=== PATIENT | female | born 1975 | race Caucasian/White ===

== ENCOUNTER 2017-03-06 00:50 | Inpatient (IN) | payer MEDICAID, OTHER ==
[2017-03-06 00:50] VITALS: BMI 36.5
[2017-03-06 01:49] LABS: BASO % 0.4 % (0.0-2.0); EOS # 0.1 K/uL (0.0-0.7); HEMATOCRIT 37.3 % (34.0-47.0); LYMPH # 3.6 K/uL (1.0-4.3); MEAN CELL VOLUME 84.8 fL (81.0-99.0); MEAN CORPUSCULAR HEMOGLOBIN 27.8 pg (27.0-31.0); MEAN CORPUSCULAR HGB CONC 32.7 g/dL (33.0-37.0); MEAN PLATELET VOLUME 7.3 fL (7.2-11.7); MONO # 0.6 K/uL (0.0-0.8); RED CELL DISTRIBUTION WIDTH 15.6 % (11.5-14.5); WHITE BLOOD COUNT 7.5 K/uL (4.8-10.8)
[2017-03-06 01:54] LABS: URINE BILIRUBIN NEGATIVE (NEGATIVE); URINE BLOOD NEGATIVE (NEGATIVE); URINE COLOR Colorless (YELLOW); URINE GLUCOSE (UA) NORMAL (Normal); URINE KETONE NEGATIVE (NEGATIVE); URINE LEUKOCYTE ESTERASE NEG Leu/uL (Negative); URINE PROTEIN NEGATIVE (NEGATIVE); URINE UROBILINOGEN NORMAL mg/dL (0.2-1.0)
[2017-03-06 01:59] LABS: CHLORIDE 110 mmol/L (98-107)
[2017-03-06 02:00] LABS: POTASSIUM 4.1 mmol/L (3.6-5.2); SODIUM 146 mmol/L (132-148)
[2017-03-06 02:02] LABS: CARBON DIOXIDE 19 mmol/L (22-30); GFR AFRICAN-AMERICAN > 60
[2017-03-06 02:03] LABS: ALB/GLOB RATIO 1.2 (1.0-2.1); ALKALINE PHOSPHATASE 68 U/L (38-126); ALT/SGPT 32 U/L (9-52); AST/SGOT 31 U/L (14-36); BILIRUBIN,TOTAL 0.2 mg/dL (0.2-1.3); BLOOD UREA NITROGEN 10 mg/dL (7-17); CALCIUM 9.2 mg/dl (8.6-10.4); GLUCOSE,RANDOM 101 mg/dL (65-105)
--- NOTE | 2017-03-06 03:19 | C.PDOC ---
History Of Present Illness <Ginger Angulo - Last Filed: 03/06/17 10:16> <NilaTrang A - Last Filed: 03/14/17 20:03> 41 year old female brought via EMS after she expressed over the phone to a friend that she wanted to hang herself. EMS was called, and they found her with a rope and scissors in hand at her apartment. Patient admits to suicidal ideation, with suicidal plan to hang herself. She states she has been under a lot of stress, recently found out her has had HIV for the past 20 years and did not tell her. Admits to ETOH use today. She has no current physical complaints. (Trang Dotson) <Ginger Angulo - Last Filed: 03/06/17 10:16> History Per: Patient History/Exam Limitations: no limitations Current Symptoms Are (Timing): Still Present Suicide/Self Injury Attempted (Context): None Modifying Factor(s): Alcohol Associated Symptoms: Depression, Suicidal Thoughts, Suicidal Plan (To hang herself) <Trang Dotson - Last Filed: 03/14/17 20:03> Time Seen by Provider: 03/06/17 00:56 Chief Complaint (Nursing): Psychiatric Evaluation Past Medical History Reviewed: Historical Data, Nursing Documentation, Vital Signs - Medical History PMH: Anxiety, Asthma, Bipolar Disorder, COPD, Depression, Fractures, HTN, Schizophrenia, Seizures Surgical History: (x 4) Family History: States: No Known Family Hx - Social History Hx Tobacco Use: No Hx Alcohol Use: Yes Hx Substance Use: Yes - Immunization History Hx Tetanus Toxoid Vaccination: No Hx Influenza Vaccination: No Hx Pneumococcal Vaccination: No <Trang Dotson - Last Filed: 03/14/17 20:03> Vital Signs: Last Vital Signs Temp 97.0 F L 03/10/17 07:43 Pulse 78 03/10/17 07:43 Resp 16 03/10/17 07:43 BP 127/75 03/10/17 07:43 Pulse Ox 98 03/06/17 14:41 - [facility] Procedures APPLICATION OF SPLINT (06/12/13) DETOXIFICATION SERVICES FOR SUBSTANCE ABUSE TREATMENT (03/06/17) GROUP UNDERWATER TRAPPER FOR SUBSTANCE ABUSE TREATMENT, PSYCHOEDUCATION (03/06/17) GROUP UNDERWATER TRAPPER FOR SUBSTANCE ABUSE, COGNITIVE BEHAVIORAL (03/06/17) GROUP PSYCHOTHERAPY (05/23/16) INDIV UNDERWATER TRAPPER FOR SUBSTANCE ABUSE TREATMENT, PSYCHOEDUCATION (03/06/17) INDIV UNDERWATER TRAPPER FOR SUBSTANCE ABUSE, COGNITIVE BEHAVIORAL (03/06/17) INDIV PSYCHOTHERAPY FOR SUBSTANCE ABUSE TREATMENT, SUPPORT (03/06/17) INDIVID PSYCHOTHERAP NEC (05/23/14) INDIVIDUAL PSYCHOTHERAPY, SUPPORTIVE (11/05/16) INJECT/INFUSE NEC (05/14/14) MEDICATION MANAGEMENT (05/23/16) OTHER GROUP THERAPY (05/23/14) VACCINATION NEC (04/07/15) Review Of Systems Except As Marked, All Systems Reviewed And Found Negative. Constitutional: Negative for: Fever, Chills Cardiovascular: Negative for: Chest Pain, Palpitations Respiratory: Negative for: Shortness of Breath Gastrointestinal: Negative for: Nausea, Vomiting, Abdominal Pain, Diarrhea Psych: Positive for: Depression, Suicidal ideation <Trang Dotson - Last Filed: 03/14/17 20:03> Physical Exam - Physical Exam Appears: Non-toxic, Other (Flat affect) Skin: Normal Color, Warm, Dry Head: Atraumatic, Normacephalic Eye(s): bilateral: Normal Inspection Oral Mucosa: Moist Cardiovascular: Rhythm Regular Respiratory: Normal Breath Sounds, No Rales, No Rhonchi, No Wheezing Gastrointestinal/Abdominal: Normal Exam, Bowel Sounds, Soft, No Tenderness Neurological/Psych: Oriented x3 <Trang Dotson - Last Filed: 03/14/17 20:03> ED Course And Treatment - Laboratory Results Result Diagrams: 03/06/17 01:45 03/06/17 01:45 <Ginger Angulo - Last Filed: 03/06/17 10:16> - Laboratory Results Result Diagrams: 03/06/17 01:45 03/06/17 01:45 O2 Sat by Pulse Oximetry: 99 (Room air) Pulse Ox Interpretation: Normal Progress Note: Blood work, UA, UDS ordered and reviewed. Patient given her dose of PO Seroquel (ran out of med several days ago). Patient placed in ED observation due to elevated alcohol level. Pending crisis evaluation. Reevaluation Time: 06:00 Reassessment Condition: Improved (Patient sleeping comfortably, arousable to verbal stimuli. Pending sobriety, crisis eval.) <Trang Dotson - Last Filed: 03/14/17 20:03> Disposition Counseled Patient/Family Regarding: Diagnosis - Disposition Disposition Time: 10:16 - POA Present On Arrival: None <KevGinger - Last Filed: 03/06/17 10:16> - Disposition Disposition Time: 07:00 <Trang Dotson - Last Filed: 03/14/17 20:03> - Disposition Disposition: HOSPITALIZED Condition: STABLE - Clinical Impression Clinical Impression: Suicidal ideation, Alcohol use <Ginger Angulo - Last Filed: 03/06/17 10:16> - Scribe Statement The provider has reviewed the documentation as recorded by the Scribe <Trang Dotson - Last Filed: 03/14/17 20:03> - Scribe Statement Luis F Hou All medical record entries made by the Scribe were at my direction and personally dictated by me. I have reviewed the chart and agree that the record accurately reflects my personal performance of the history, physical exam, medical decision making, and the department course for this patient. I have also personally directed, reviewed, and agree with the discharge instructions and disposition. (Trang Dotson) Physician Patient Turnover Patient Signed Over To: Ginger Angulo Handoff Comments: pending sobriety, crisis eval <Trang Dotson - Last Filed: 03/14/17 20:03> Decision To Admit - Pt Status Changed To: Hospital Disposition Of: Inpatient - Admit Certification Admit to Inpatient:: After my assessment, the patient will require hospitalization for at least two midnights. This is because of the severity of symptoms shown, intensity of services needed, and/or the medical risk in this patient being treated as an outpatient. - InPatient: Physician Admission Certification: I certify that this patient requires 2 or more midnights of care for the following reason:: SEE NOTE - . Bed Request Type: Psychiatry Admitting Physician: Teresa Donahue <Ginger Angulo - Last Filed: 03/06/17 10:16> <Trang Dotson - Last Filed: 03/14/17 20:03> - . Patient Diagnosis: Suicidal ideation, Alcohol use, Bipolar 1 disorder, depressed, severe
[2017-03-06 10:04] LABS: RBC URINE < 1 /hpf (0-3); WBC URINE < 1 /hpf (0-5)
[2017-03-06] MEDS ORDERED: Influenza Virus Vaccine 45 mcg/0.5 ml Syr IM ONE (16:59)
[2017-03-06] MEDS ORDERED: Albuterol HFA 90 mcg/actuation (8 g) INH PRN (17:20)
[2017-03-06] MEDS ORDERED: Naproxen 550 mg Tab PO PRN (17:20)
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
--- NOTE | 2017-03-08 10:22 | PCM.PYCHPN ---
Psychiatric Progress Note - Psychiatric Progress Note Patient seen today, length of contact: 16 min Patient Chief Complaint: I'm feeling little better Problems Identified/Issues Discussed: Patient seen and evaluated, chart reviewed and discussed with the nurse. Patient reports irritability and agitation. She still reports racing of thoughts and anxiety. She remained isolated and withdrawn and denies any withdrawal symptoms. However she remained calm and cooperative, taking medication and denies any side effects. Supportive therapy and psychoeducation were given Medication Change: Yes (decrease Cymbalta, increase seroquel) Medical Record Reviewed: Yes Mental Status Examination - Cognitive Function Orientation: Person, Place, Situation, Time Memory: Intact Attention: WNL Concentration: Poor Association: WNL Fund of Knowledge: Poor - Mood Mood: Depressed, Anxious - Affect Affect: Broad, Depressed - Speech Speech: Soft - Formal Thought Process Formal Thought Process: Flight of ideas - Suicidal Ideation Suicidal Ideation: No - Homicidal Ideation Homicidal Ideation: No Goal/Treatment Plan - Goal/Treatment Plan Need for Continued Stay: Discharge may exacerbated symptoms, Severe functional impairment Progress Toward Problem(s) and Goals/Treatment Plan: Bipolar disorder current episode mixed severe without psychotic features CBT Psychoeducation Supportive therapy, group therapy, individual therapy Cymbalta 30 mg by mouth daily Neurontin 300 mg by mouth 3 times a day Seroquel 200 mg by mouth daily Seroquel 300 mg by mouth daily at bedtime Trazodone 50 mg by mouth daily at bedtime Alcohol use disorder severe CBT Psychoeducation Supportive therapy, individual therapy Use PR for abstinence Alcohol withdrawal uncomplicated CBT Psychoeducation Supportive therapy, individual therapy Librium when necessary Folic acid/thiamine/multivitamin Asthma Continue prescribed medications (Montelukast, albuteral inhaler) Monitor signs and symptoms - Smoking Cessation Smoking Cessation Initiated: No
[2017-03-09] MEDS: Pantoprazole 40 mg EC Tab PO SCH (09:41)
[2017-03-09 09:56] VITALS: RESP 16
[2017-03-09] MEDS ORDERED: Pneumococcal 23-Valent Vaccine IM ONE (10:00)
--- NOTE | 2017-03-09 13:16 | PCM.PYCHPN ---
Psychiatric Progress Note - Psychiatric Progress Note Patient seen today, length of contact: 15 min Patient Chief Complaint: "I'm OK" Problems Identified/Issues Discussed: The pt is seen, chart reviewed, case discussed with staff. The pt is compliant with medications and reports no side-effects. Symptoms are improving but needs more time to stabilize. After care discussed, support and psychoeducation given. How to stop frequent admissions discussed. She agreed to consider IOP, ie [facility] Medication Change: No Medical Record Reviewed: Yes Mental Status Examination - Cognitive Function Orientation: Person, Place, Situation, Time Memory: Intact Attention: WNL Concentration: Poor Association: WNL Fund of Knowledge: Poor - Mood Mood: Depressed, Anxious - Affect Affect: Broad - Speech Speech: Soft - Formal Thought Process Formal Thought Process: No Impairment - Suicidal Ideation Suicidal Ideation: No - Homicidal Ideation Homicidal Ideation: No Goal/Treatment Plan - Goal/Treatment Plan Need for Continued Stay: Discharge may exacerbated symptoms, Severe functional impairment Progress Toward Problem(s) and Goals/Treatment Plan: Continue medications Support and psychoeducation daily Attend groups and activities daily After care planning Estimated Date of D/C: 03/11/17
[2017-03-09] MEDS ORDERED: Aluminum Hydroxide/Magnesium Hydroxide Susp (30 mL) PO PRN (21:29)
[2017-03-10 07:43] VITALS: BP 127/75; PULSE 78; TEMP 97
[2017-03-10] MEDS: Pantoprazole 40 mg EC Tab PO SCH (09:17)
--- NOTE | 2017-03-10 16:33 | PCM.PYCHPN ---
Psychiatric Progress Note - Psychiatric Progress Note Patient seen today, length of contact: 16 min Patient Chief Complaint: "I'm anxious" Problems Identified/Issues Discussed: The pt is seen, chart reviewed, case discussed with staff. The pt has no SEs from meds Symptoms are improving but needs more time to stabilize. After care discussed and she agreed to consider [facility] IOP. Also, ReVia started and risks discussed. UDS negative Medication Change: Yes (naltrexone) Medical Record Reviewed: Yes Mental Status Examination - Cognitive Function Orientation: Person, Place, Situation, Time Memory: Intact Attention: WNL Concentration: Poor Association: WNL Fund of Knowledge: Poor - Mood Mood: Depressed, Anxious - Affect Affect: Broad - Speech Speech: Soft - Formal Thought Process Formal Thought Process: No Impairment - Suicidal Ideation Suicidal Ideation: No - Homicidal Ideation Homicidal Ideation: No Goal/Treatment Plan - Goal/Treatment Plan Need for Continued Stay: Discharge may exacerbated symptoms, Severe functional impairment Progress Toward Problem(s) and Goals/Treatment Plan: Continue medications, naltrexone added Support and psychoeducation daily Attend groups and activities daily After care planning: IOP Estimated Date of D/C: 03/12/17 If changed, why: needs more time - Smoking Cessation Smoking Cessation Initiated: Yes
[2017-03-11] MEDS: Pantoprazole 40 mg EC Tab PO SCH (09:28)
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
[2017-03-14 20:04] VITALS: O2SAT 99
== END 2017-03-11 11:05 | disposition home or self-care (01) | DRG 430 ==
LOC: C.ER 00:50 → SUPCPDRO 00:50 → C.9OBSV 02:28 → OBSVTOIN 10:18 → C.9E 10:18 → C.5E 14:41
PROVIDERS: ADMIT Emergency Medicine; ATTEND Psychiatry & Neurology Psychiatry
PROC: HZ2ZZZZ Detoxification Services for Substance Abuse Treatment (ICD-10-PCS; principal; 2017-03-07)
PROC: HZ32ZZZ Individual Counseling for Substance Abuse Treatment, Cognitive-Behavioral (ICD-10-PCS; 2017-03-07)
PROC: HZ42ZZZ Group Counseling for Substance Abuse Treatment, Cognitive-Behavioral (ICD-10-PCS; 2017-03-07)
PROC: HZ46ZZZ Group Counseling for Substance Abuse Treatment, Psychoeducation (ICD-10-PCS; 2017-03-07)
PROC: HZ36ZZZ Individual Counseling for Substance Abuse Treatment, Psychoeducation (ICD-10-PCS; 2017-03-07)
PROC: HZ59ZZZ Individual Psychotherapy for Substance Abuse Treatment, Supportive (ICD-10-PCS; 2017-03-07)
DX: F31.63 Bipolar disorder, current episode mixed, severe, without psychotic features (principal); I10 Essential (primary) hypertension; F10.230 Alcohol dependence with withdrawal, uncomplicated; J44.9 Chronic obstructive pulmonary disease, unspecified; F20.9 Schizophrenia, unspecified; T14.91 Suicide attempt; F41.9 Anxiety disorder, unspecified; X83.8XXA Intentional self-harm by other specified means, initial encounter; J45.909 Unspecified asthma, uncomplicated; Y90.8 Blood alcohol level of 240 mg/100 ml or more

== ENCOUNTER 2017-06-04 00:38 | Emergency (ER) | payer MEDICAID, OTHER ==
[2017-06-04 00:38] VITALS: BMI 36.5
[2017-06-04 00:48] VITALS: TEMP 98; O2SAT 98
--- NOTE | 2017-06-04 01:05 | C.PDOC ---
History Of Present Illness Pt has been drinking and complains of some dysuria and vaginal discomfort. No f/ c/n/v. Ambulating without difficulty Time Seen by Provider: 06/04/17 01:05 Chief Complaint (Nursing): Abdominal Pain History Per: Patient History/Exam Limitations: no limitations Onset/Duration Of Symptoms: Hrs Current Symptoms Are (Timing): Still Present Context: Other Severity: Mild Pain Scale Rating Of: 2 Location Of Pain/Discomfort: Suprapubic Radiation Of Pain To:: None Quality Of Discomfort: Dull Associated Symptoms: denies: Fever, Chills, Nausea Exacerbating Factors: None Alleviating Factors: None Last Bowel Movement: Yesterday Additional History Per: Patient Abnormal Vaginal Bleeding: No Past Medical History Reviewed: Historical Data, Nursing Documentation, Vital Signs Vital Signs: Last Vital Signs Temp 98.0 F 06/04/17 00:45 Pulse 115 H 06/04/17 00:45 Resp 16 06/04/17 00:45 BP 142/92 H 06/04/17 00:45 Pulse Ox 98 06/04/17 01:05 - Medical History PMH: Anxiety, Asthma, Bipolar Disorder, COPD, Depression, Fractures, HTN, Schizophrenia, Seizures Denies: Diabetes, Hepatitis, HIV, Chronic Kidney Disease, Sexually Transmitted Disease Surgical History: (x 4) - [facility] Procedures APPLICATION OF SPLINT (06/12/13) DETOXIFICATION SERVICES FOR SUBSTANCE ABUSE TREATMENT (03/06/17) GROUP CRIME SCENE EXAMINER FOR SUBSTANCE ABUSE TREATMENT, PSYCHOEDUCATION (03/06/17) GROUP CRIME SCENE EXAMINER FOR SUBSTANCE ABUSE, COGNITIVE BEHAVIORAL (03/06/17) GROUP PSYCHOTHERAPY (05/23/16) INDIV CRIME SCENE EXAMINER FOR SUBSTANCE ABUSE TREATMENT, PSYCHOEDUCATION (03/06/17) INDIV CRIME SCENE EXAMINER FOR SUBSTANCE ABUSE, COGNITIVE BEHAVIORAL (03/06/17) INDIV PSYCHOTHERAPY FOR SUBSTANCE ABUSE TREATMENT, SUPPORT (03/06/17) INDIVID PSYCHOTHERAP NEC (05/23/14) INDIVIDUAL PSYCHOTHERAPY, SUPPORTIVE (11/05/16) INJECT/INFUSE NEC (05/14/14) MEDICATION MANAGEMENT (05/23/16) OTHER GROUP THERAPY (05/23/14) VACCINATION NEC (04/07/15) Family History: States: No Known Family Hx - Social History Hx Tobacco Use: No Hx Alcohol Use: Yes Hx Substance Use: Yes - Immunization History Hx Tetanus Toxoid Vaccination: No Hx Influenza Vaccination: No Hx Pneumococcal Vaccination: No Review Of Systems Constitutional: Negative for: Fever, Chills Eyes: Negative for: Vision Change Cardiovascular: Negative for: Chest Pain, Palpitations Respiratory: Negative for: Shortness of Breath Gastrointestinal: Negative for: Nausea, Vomiting, Abdominal Pain Genitourinary: Positive for: Dysuria, Frequency Musculoskeletal: Negative for: Back Pain Skin: Negative for: Rash, Lesions Neurological: Negative for: Weakness Psych: Negative for: Anxiety Physical Exam - Physical Exam Appears: Non-toxic, No Acute Distress Skin: Warm, Dry Oral Mucosa: Moist Neck: Supple Chest: Symmetrical Cardiovascular: Rhythm Regular Gastrointestinal/Abdominal: Soft, No Tenderness, No Distention, Other (obese) Back: No CVA Tenderness Extremity: Normal ROM Extremity: Bilateral: Atraumatic Neurological/Psych: Oriented x3, Normal Speech, Normal Cognition Gait: Steady ED Course And Treatment O2 Sat by Pulse Oximetry: 98 Pulse Ox Interpretation: Normal Reevaluation Time: 02:26 Reassessment Condition: Improved Disposition Counseled Patient/Family Regarding: Studies Performed, Diagnosis, Need For Followup, Rx Given - Disposition Referrals: [facility] [Outside] Disposition: HOME/ ROUTINE Disposition Time: 01:05 Condition: FAIR Prescriptions: Nitrofurantoin Macrocrystals [Macrobid] 1 cap PO BID #14 cap Instructions: Dysuria (ED) - Clinical Impression Clinical Impression: Dysuria
[2017-06-04 01:35] LABS: HCG,QUALITATIVE URINE NEGATIVE (NEGATIVE)
[2017-06-04 01:43] LABS: BARBITURATES, UR NEGATIVE (NEGATIVE); BENZODIAZEPINES, UR NEGATIVE (NEGATIVE)
[2017-06-04 01:46] LABS: PHENCYCLIDINE, UR NEGATIVE (NEGATIVE)
[2017-06-04 01:47] LABS: OPIATES, UR NEGATIVE (NEGATIVE)
[2017-06-04 02:18] LABS: SQUAMOUS EPITHIAL < 1 /hpf (0-5); URINE BILIRUBIN NEGATIVE (NEGATIVE); URINE BLOOD NEGATIVE (NEGATIVE); URINE CLARITY Clear (Clear); URINE COLOR Colorless (YELLOW); URINE GLUCOSE (UA) NORMAL (Normal); URINE LEUKOCYTE ESTERASE NEG Leu/uL (Negative); URINE NITRATE NEGATIVE (NEGATIVE); URINE PROTEIN NEGATIVE (NEGATIVE); URINE UROBILINOGEN NORMAL mg/dL (0.2-1.0)
[2017-06-04 02:49] VITALS: BP 130/80; PULSE 70; RESP 14
== END 2017-06-04 02:49 | disposition home or self-care (01) ==
LOC: C.ER 00:38
DX: R30.0 Dysuria (principal)

== ENCOUNTER 2017-06-20 22:30 | Emergency (ER) | payer OTHER ==
[2017-06-20 22:30] VITALS: BMI 36.5
--- NOTE | 2017-06-20 23:50 | C.PDOC ---
History Of Present Illness 41 y/o female brought to ED by EMS for disturbance in her building. At ed Patient complaints of feeling anxious and not being able to sleep. Patient denies suicidal ideation, homicidal ideation, fever, chills or any other complaints at this time. Time Seen by Provider: 06/20/17 23:37 Chief Complaint (Nursing): Psychiatric Evaluation History Per: Patient History/Exam Limitations: no limitations Onset/Duration Of Symptoms: Hrs Current Symptoms Are (Timing): Still Present Suicide/Self Injury Attempted (Context): None Past Medical History Reviewed: Historical Data, Nursing Documentation, Vital Signs Vital Signs: Last Vital Signs Temp 98.1 F 06/20/17 22:43 Pulse 132 H 06/20/17 22:43 Resp 20 06/20/17 22:43 BP 133/87 06/20/17 22:43 Pulse Ox 98 06/21/17 00:01 - Medical History PMH: Anxiety, Asthma, Bipolar Disorder, COPD, Depression, Fractures, HTN, Schizophrenia, Seizures Surgical History: (x 4) - [facility] Procedures APPLICATION OF SPLINT (06/12/13) DETOXIFICATION SERVICES FOR SUBSTANCE ABUSE TREATMENT (03/06/17) GROUP HYDROELECTRIC PLANT STRUCTURAL ENGINEER FOR SUBSTANCE ABUSE TREATMENT, PSYCHOEDUCATION (03/06/17) GROUP HYDROELECTRIC PLANT STRUCTURAL ENGINEER FOR SUBSTANCE ABUSE, COGNITIVE BEHAVIORAL (03/06/17) GROUP PSYCHOTHERAPY (05/23/16) INDIV HYDROELECTRIC PLANT STRUCTURAL ENGINEER FOR SUBSTANCE ABUSE TREATMENT, PSYCHOEDUCATION (03/06/17) INDIV HYDROELECTRIC PLANT STRUCTURAL ENGINEER FOR SUBSTANCE ABUSE, COGNITIVE BEHAVIORAL (03/06/17) INDIV PSYCHOTHERAPY FOR SUBSTANCE ABUSE TREATMENT, SUPPORT (03/06/17) INDIVID PSYCHOTHERAP NEC (05/23/14) INDIVIDUAL PSYCHOTHERAPY, SUPPORTIVE (11/05/16) INJECT/INFUSE NEC (05/14/14) MEDICATION MANAGEMENT (05/23/16) OTHER GROUP THERAPY (05/23/14) VACCINATION NEC (04/07/15) Family History: States: Unknown Family Hx - Social History Hx Tobacco Use: No Hx Alcohol Use: Yes Hx Substance Use: Yes - Immunization History Hx Tetanus Toxoid Vaccination: No Hx Influenza Vaccination: No Hx Pneumococcal Vaccination: No Review Of Systems Constitutional: Negative for: Fever, Chills Skin: Negative for: Rash Psych: Negative for: Suicidal ideation Physical Exam - Physical Exam Appears: No Acute Distress Skin: Warm Head: Normacephalic Eye(s): bilateral: EOMI Oral Mucosa: Moist Neck: Supple Chest: Symmetrical Neurological/Psych: Oriented x3 ED Course And Treatment O2 Sat by Pulse Oximetry: 98 (RA) Pulse Ox Interpretation: Normal Progress Note: pt was cleared for discharge by dr euceda Disposition Counseled Patient/Family Regarding: Studies Performed, Diagnosis, Need For Followup - Disposition Disposition: HOME/ ROUTINE Disposition Time: 23:49 Condition: FAIR Additional Instructions: Please follow up with [facility] Crisis Instructions: Depression (DC) - Clinical Impression Clinical Impression: Depression - Scribe Statement The provider has reviewed the documentation as recorded by the Scribe Blanche Emmanuel All medical record entries made by the Prettyibe were at my direction and personally dictated by me. I have reviewed the chart and agree that the record accurately reflects my personal performance of the history, physical exam, medical decision making, and the department course for this patient. I have also personally directed, reviewed, and agree with the discharge instructions and disposition.
[2017-06-21 00:06] VITALS: BP 130/76; PULSE 102; RESP 18; TEMP 98.8; O2SAT 100
== END 2017-06-21 00:08 | disposition home or self-care (01) ==
LOC: C.ER 22:30
DX: F32.9 Major depressive disorder, single episode, unspecified (principal)

== ENCOUNTER 2017-09-03 19:18 | Emergency (ER) | payer OTHER ==
[2017-09-03 19:18] VITALS: BMI 33.4
--- NOTE | 2017-09-03 19:32 | C.PDOC ---
History Of Present Illness The patient presents to the ED via EMS and [facility] escort for psychiatric evaluation. As per EMS, patient was found yelling on the street and was uncooperative with EMS. Patient notes she is depressed, is non-talkative, and is refusing to provide additional information at this time. Time Seen by Provider: 09/03/17 19:31 Chief Complaint (Nursing): Psychiatric Evaluation History Per: Patient, EMS History/Exam Limitations: other (uncooperative ) Onset/Duration Of Symptoms: Hrs Current Symptoms Are (Timing): Still Present Suicide/Self Injury Attempted (Context): None Modifying Factor(s): Alcohol Severity: None Pain Scale Rating Of: 0 Associated Symptoms: Anger, Anxiety. denies: Depression Involuntary Hold By: None Recent travel outside of the [place]: No Additional History Per: Patient, EMS, Law Enforcement Past Medical History Reviewed: Historical Data, Nursing Documentation, Vital Signs Vital Signs: Last Vital Signs Temp 98.0 F 09/03/17 22:27 Pulse 120 H 09/03/17 22:27 Resp 18 09/03/17 22:27 BP 141/95 H 09/03/17 22:27 Pulse Ox 98 09/03/17 22:27 - Medical History PMH: Anxiety, Asthma, Bipolar Disorder, COPD, Depression, Fractures, HTN, Schizophrenia Denies: Diabetes, Hepatitis, HIV, Chronic Kidney Disease, Seizures, Sexually Transmitted Disease Surgical History: (x 4) - [facility] Procedures APPLICATION OF SPLINT (06/12/13) DETOXIFICATION SERVICES FOR SUBSTANCE ABUSE TREATMENT (03/06/17) GROUP MASTER COOK FOR SUBSTANCE ABUSE TREATMENT, PSYCHOEDUCATION (03/06/17) GROUP MASTER COOK FOR SUBSTANCE ABUSE, COGNITIVE BEHAVIORAL (03/06/17) GROUP PSYCHOTHERAPY (05/23/16) INDIV MASTER COOK FOR SUBSTANCE ABUSE TREATMENT, PSYCHOEDUCATION (03/06/17) INDIV MASTER COOK FOR SUBSTANCE ABUSE, COGNITIVE BEHAVIORAL (03/06/17) INDIV PSYCHOTHERAPY FOR SUBSTANCE ABUSE TREATMENT, SUPPORT (03/06/17) INDIVID PSYCHOTHERAP NEC (05/23/14) INDIVIDUAL PSYCHOTHERAPY, SUPPORTIVE (11/05/16) INJECT/INFUSE NEC (05/14/14) MEDICATION MANAGEMENT (05/23/16) OTHER GROUP THERAPY (05/23/14) VACCINATION NEC (04/07/15) Family History: States: Unknown Family Hx - Social History Hx Tobacco Use: No Hx Alcohol Use: Yes Hx Substance Use: Yes - Immunization History Hx Tetanus Toxoid Vaccination: No Hx Influenza Vaccination: No Hx Pneumococcal Vaccination: No Review Of Systems Review Of Systems: ROS cannot be obtained secondary to pt's inabilty to answer questions. Constitutional: Negative for: Fever, Chills Eyes: Negative for: Redness Cardiovascular: Negative for: Chest Pain Respiratory: Negative for: Shortness of Breath Gastrointestinal: Negative for: Nausea Genitourinary: Negative for: Dysuria Musculoskeletal: Negative for: Back Pain Skin: Negative for: Rash Neurological: Negative for: Weakness Psych: Negative for: Anxiety Physical Exam - Physical Exam Appears: Non-toxic, No Acute Distress Skin: Warm, Dry Head: Normacephalic Eye(s): bilateral: Normal Inspection Oral Mucosa: Moist Neck: Supple Chest: Symmetrical, No Deformity, No Tenderness Cardiovascular: Rhythm Regular, No Murmur Respiratory: No Rales, No Rhonchi, No Wheezing Extremity: Normal ROM Extremity: Bilateral: Atraumatic, Normal ROM Neurological/Psych: Oriented x3 Gait: Steady ED Course And Treatment - Laboratory Results Result Diagrams: 09/03/17 19:55 09/03/17 19:55 O2 Sat by Pulse Oximetry: 98 Pulse Ox Interpretation: Normal Progress Note: Bloodwork and urinalysis ordered and reviewed. 12:30 no complaints. Clinically sober. Yohannes came to pick her up Medical Decision Making Medical Decision Making: Upon provider reevaluation patient is feeling better, is medically stable, and requires no further treatment in the ED at this time. Patient will be discharged home . Counseling was provided and all questions were answered regarding diagnosis and need for follow up with the referred clinic. There is agreement to discharge plan. Return if symptoms persist or worsen. Disposition Counseled Patient/Family Regarding: Studies Performed, Diagnosis, Need For Followup - Disposition Referrals: [facility] [Outside] Disposition: HOME/ ROUTINE Disposition Time: 19:31 Condition: FAIR Instructions: Alcohol Intoxication (DC) Forms: [facility] (Estonian) - Clinical Impression Clinical Impression: Alcohol intoxication - Scribe Statement The provider has reviewed the documentation as recorded by the Scribe (Carol Rogers) Provider Attestation: All medical record entries made by the Scribe were at my direction and personally dictated by me. I have reviewed the chart and agree that the record accurately reflects my personal performance of the history, physical exam, medical decision making, and the department course for this patient. I have also personally directed, reviewed, and agree with the discharge instructions and disposition.
[2017-09-03 19:54] LABS: URINE BACTERIA RARE (<OCC); URINE BILIRUBIN NEGATIVE (NEGATIVE); URINE BLOOD 1+ (NEGATIVE); URINE COLOR Straw (YELLOW); URINE GLUCOSE (UA) NORMAL (Normal); URINE KETONE NEGATIVE (NEGATIVE); URINE LEUKOCYTE ESTERASE NEG Leu/uL (Negative); URINE PROTEIN NEGATIVE (NEGATIVE); URINE UROBILINOGEN NORMAL mg/dL (0.2-1.0); WBC URINE < 1 /hpf (0-5)
[2017-09-03 19:57] LABS: BASO % 0.6 % (0.0-2.0); EOS # 0.1 K/uL (0.0-0.7); EOS % 0.8 % (0.0-4.0); HEMATOCRIT 35.5 % (34.0-47.0); LYMPH # 3.1 K/uL (1.0-4.3); LYMPH % 38.3 % (20.0-40.0); MEAN CELL VOLUME 82.6 fL (81.0-99.0); MEAN CORPUSCULAR HEMOGLOBIN 27.7 pg (27.0-31.0); MEAN CORPUSCULAR HGB CONC 33.5 g/dL (33.0-37.0); MEAN PLATELET VOLUME 7.1 fL (7.2-11.7); MONO # 0.5 K/uL (0.0-0.8); MONO % 6.2 % (0.0-10.0); RED CELL DISTRIBUTION WIDTH 14.9 % (11.5-14.5); WHITE BLOOD COUNT 8.1 K/uL (4.8-10.8)
[2017-09-03 20:05] LABS: CHLORIDE 103 mmol/L (98-107); SODIUM 135 mmol/L (132-148)
[2017-09-03 20:06] LABS: POTASSIUM 3.7 mmol/L (3.6-5.2)
[2017-09-03 20:07] LABS: GFR AFRICAN-AMERICAN > 60
[2017-09-03 20:08] LABS: ALB/GLOB RATIO 1.2 (1.0-2.1); ALKALINE PHOSPHATASE 63 U/L (38-126); ALT/SGPT 30 U/L (9-52); AST/SGOT 28 U/L (14-36); BILIRUBIN,TOTAL 0.5 mg/dL (0.2-1.3); BLOOD UREA NITROGEN 9 mg/dL (7-17); CALCIUM 9.4 mg/dl (8.6-10.4); CARBON DIOXIDE 16 mmol/L (22-30); GLUCOSE,RANDOM 109 mg/dL (65-105); TOTAL PROTEIN 8.9 g/dL (6.3-8.3)
[2017-09-03 20:30] LABS: ALCOHOL SERUM 347 mg/dl (0-10)
[2017-09-03 22:28] VITALS: RESP 18; TEMP 98
[2017-09-04 00:52] VITALS: BP 132/85; PULSE 75; O2SAT 99
== END 2017-09-04 00:30 | disposition home or self-care (01) ==
LOC: C.ER 19:18
DX: F10.120 Alcohol abuse with intoxication, uncomplicated (principal); Y90.8 Blood alcohol level of 240 mg/100 ml or more; I10 Essential (primary) hypertension; F20.9 Schizophrenia, unspecified; F17.210 Nicotine dependence, cigarettes, uncomplicated

== ENCOUNTER 2017-11-08 07:25 | Inpatient (IN) | payer MEDICAID, OTHER ==
[2017-11-08 07:25] VITALS: BMI 33.4
--- NOTE | 2017-11-08 07:41 | C.PDOC ---
History Of Present Illness 42 y/o female, with PMHx of anxiety, asthma, bipolar disorder, presents to ED for evaluation of suicidal ideation. Patient states, "I feel like hurting myself by hanging." Pt states she has not taken her psych meds for the past 2 weeks, and has ran out of her meds. Denies any active physical complaints at this time. Time Seen by Provider: 11/08/17 07:28 Chief Complaint (Nursing): Psychiatric Evaluation History Per: Patient History/Exam Limitations: no limitations Onset/Duration Of Symptoms: Gradual Current Symptoms Are (Timing): Still Present Severity: None Pain Scale Rating Of: 0 Associated Symptoms: Suicidal Thoughts, Suicidal Plan Involuntary Hold By: None Recent travel outside of the [place]: No Additional History Per: Patient Past Medical History Reviewed: Historical Data, Nursing Documentation, Vital Signs Vital Signs: Last Vital Signs Temp 98.8 F 11/08/17 14:57 Pulse 102 H 11/08/17 14:57 Resp 20 11/08/17 14:57 BP 114/74 11/08/17 14:57 Pulse Ox 97 11/08/17 15:25 - Medical History PMH: Anxiety, Asthma, Bipolar Disorder, COPD, Depression, Fractures, HTN, Schizophrenia Denies: Diabetes, Hepatitis, HIV, Chronic Kidney Disease, Seizures, Sexually Transmitted Disease Surgical History: (x 4) - [facility] Procedures APPLICATION OF SPLINT (06/12/13) DETOXIFICATION SERVICES FOR SUBSTANCE ABUSE TREATMENT (03/06/17) GROUP ICING MAKER FOR SUBSTANCE ABUSE TREATMENT, PSYCHOEDUCATION (03/06/17) GROUP ICING MAKER FOR SUBSTANCE ABUSE, COGNITIVE BEHAVIORAL (03/06/17) GROUP PSYCHOTHERAPY (05/23/16) INDIV ICING MAKER FOR SUBSTANCE ABUSE TREATMENT, PSYCHOEDUCATION (03/06/17) INDIV ICING MAKER FOR SUBSTANCE ABUSE, COGNITIVE BEHAVIORAL (03/06/17) INDIV PSYCHOTHERAPY FOR SUBSTANCE ABUSE TREATMENT, SUPPORT (03/06/17) INDIVID PSYCHOTHERAP NEC (05/23/14) INDIVIDUAL PSYCHOTHERAPY, SUPPORTIVE (11/05/16) INJECT/INFUSE NEC (05/14/14) MEDICATION MANAGEMENT (05/23/16) OTHER GROUP THERAPY (05/23/14) VACCINATION NEC (04/07/15) Family History: States: Unknown Family Hx - Social History Hx Tobacco Use: No Hx Alcohol Use: Yes Hx Substance Use: Yes - Immunization History Hx Tetanus Toxoid Vaccination: No Hx Influenza Vaccination: No Hx Pneumococcal Vaccination: No Review Of Systems Except As Marked, All Systems Reviewed And Found Negative. Constitutional: Negative for: Fever, Chills Cardiovascular: Negative for: Chest Pain, Palpitations Respiratory: Negative for: Cough, Shortness of Breath Gastrointestinal: Negative for: Nausea, Vomiting, Abdominal Pain Neurological: Negative for: Headache, Dizziness Psych: Positive for: Suicidal ideation Physical Exam - Physical Exam Appears: Non-toxic, No Acute Distress Skin: Normal Color, Warm, Dry Head: Atraumatic, Normacephalic Eye(s): bilateral: Normal Inspection Oral Mucosa: Moist Chest: Symmetrical Cardiovascular: Rhythm Regular, No Murmur Respiratory: Normal Breath Sounds, No Rales, No Rhonchi, No Wheezing Gastrointestinal/Abdominal: Soft, No Tenderness Extremity: Normal ROM, No Pedal Edema Neurological/Psych: Oriented x3, Normal Speech ED Course And Treatment - Laboratory Results Result Diagrams: 11/08/17 13:29 11/08/17 07:58 Lab Interpretation: No Acute Changes ECG: Interpreted By Ny ECG Rhythm: Sinus Tachycardia ECG Interpretation: Normal Rate From EC O2 Sat by Pulse Oximetry: 97 Pulse Ox Interpretation: Normal - Radiology CXR: Interpreted by Ny CXR Interpretation: Yes: No Acute Disease Progress Note: Blood work, UA ordered and reviewed. Case discussed and patient evaluated by garbage depot worker who request admission to Dr Donahue Reassessment Condition: Unchanged - Physician Consult Information Physician Contacted: Teresa Donahue Outcome Of Conversation: admit Medical Decision Making Medical Decision Making: Patient calm in no distress Disposition Discussed With DrBisi: Teresa Donahue Doctor Will See Patient In The: Hospital Counseled Patient/Family Regarding: Studies Performed - Disposition Disposition: HOSPITALIZED Disposition Time: 15:30 Condition: STABLE - POA Present On Arrival: None - Clinical Impression Clinical Impression: Depression, Single major depressive episode, severe, with psychosis - PA / FRONT DESK / Resident Statement MD/DO has reviewed & agrees with the documentation as recorded. - Scribe Statement The provider has reviewed the documentation as recorded by the Shaniqua Rogers All medical record entries made by the Scribe were at my direction and personally dictated by me. I have reviewed the chart and agree that the record accurately reflects my personal performance of the history, physical exam, medical decision making, and the department course for this patient. I have also personally directed, reviewed, and agree with the discharge instructions and disposition. Decision To Admit - Pt Status Changed To: Hospital Disposition Of: Inpatient - Admit Certification Admit to Inpatient:: After my assessment, the patient will require hospitalization for at least two midnights. This is because of the severity of symptoms shown, intensity of services needed, and/or the medical risk in this patient being treated as an outpatient. - InPatient: Physician Admission Certification: I certify that this patient requires 2 or more midnights of care for the following reason:: Depression - . Bed Request Type: Psychiatry Admitting Physician: Teresa Donahue Patient Diagnosis: Depression, Single major depressive episode, severe, with psychosis
[2017-11-08 08:05] LABS: BASO # 0.1 K/uL (0.0-0.2); BASO % 0.3 % (0.0-2.0); EOS # 0.1 K/uL (0.0-0.7); EOS % 0.4 % (0.0-4.0); HEMATOCRIT 36.6 % (34.0-47.0); LYMPH # 4.7 K/uL (1.0-4.3); LYMPH % 22.3 % (20.0-40.0); MEAN CELL VOLUME 83.2 fL (81.0-99.0); MEAN CORPUSCULAR HEMOGLOBIN 27.2 pg (27.0-31.0); MEAN CORPUSCULAR HGB CONC 32.6 g/dL (33.0-37.0); MEAN PLATELET VOLUME 6.9 fL (7.2-11.7); MONO # 1.2 K/uL (0.0-0.8); MONO % 5.8 % (0.0-10.0); RED CELL DISTRIBUTION WIDTH 15.8 % (11.5-14.5); WHITE BLOOD COUNT 21.2 K/uL (4.8-10.8)
[2017-11-08 08:19] LABS: ALCOHOL SERUM 297 mg/dl (0-10); ALKALINE PHOSPHATASE 92 U/L (38-126); ALT/SGPT 45 U/L (9-52); AST/SGOT 28 U/L (14-36); BILIRUBIN,TOTAL 0.3 mg/dL (0.2-1.3); BLOOD UREA NITROGEN 14 mg/dL (7-17); CALCIUM 8.3 mg/dl (8.6-10.4); CARBON DIOXIDE 23 mmol/L (22-30); CHLORIDE 109 mmol/L (98-107); GFR AFRICAN-AMERICAN > 60; GLUCOSE,RANDOM 123 mg/dL (65-105); POTASSIUM 3.5 mmol/L (3.6-5.2); SODIUM 144 mmol/L (132-148); TOTAL PROTEIN 8.9 g/dL (6.3-8.3)
[2017-11-08 08:36] LABS: URINE BILIRUBIN NEGATIVE (NEGATIVE); URINE BLOOD 1+ (NEGATIVE); URINE COLOR Straw (YELLOW); URINE GLUCOSE (UA) NORMAL (Normal); URINE KETONE TRACE mg/dL (NEGATIVE); URINE LEUKOCYTE ESTERASE NEG Leu/uL (Negative); URINE PROTEIN NEGATIVE (NEGATIVE); URINE UROBILINOGEN NORMAL mg/dL (0.2-1.0)
[2017-11-08 09:21] LABS: RBC URINE 2 /hpf (0-3)
--- NOTE | 2017-11-08 09:31 | RAD ---
HISTORY: COMPARISON: 02/19/2016 TECHNIQUE: Chest PA and lateral FINDINGS: LINES AND TUBES: None. LUNG AND PLEURA: There are low lung volumes. No focal consolidation. HEART AND MEDIASTINUM: The heart is not enlarged. The hilar and mediastinal contours are within normal limits. SKELETAL STRUCTURES: The bony structures are within normal limits for the patient's age. VISUALIZED UPPER ABDOMEN: Normal. OTHER FINDINGS: None. IMPRESSION: No acute findings.
[2017-11-08 13:32] LABS: BASO # 0.1 K/uL (0.0-0.2); BASO % 0.5 % (0.0-2.0); EOS # 0.1 K/uL (0.0-0.7); EOS % 0.6 % (0.0-4.0); HEMATOCRIT 34.4 % (34.0-47.0); LYMPH # 4.3 K/uL (1.0-4.3); LYMPH % 28.3 % (20.0-40.0); MEAN CELL VOLUME 83.7 fL (81.0-99.0); MEAN CORPUSCULAR HEMOGLOBIN 26.9 pg (27.0-31.0); MEAN CORPUSCULAR HGB CONC 32.1 g/dL (33.0-37.0); MEAN PLATELET VOLUME 6.8 fL (7.2-11.7); MONO # 0.9 K/uL (0.0-0.8); RED CELL DISTRIBUTION WIDTH 15.6 % (11.5-14.5); WHITE BLOOD COUNT 15.3 K/uL (4.8-10.8)
--- NOTE | 2017-11-08 16:17 | PCM.BM ---
<Kumar Stacy - Last Filed: 11/08/17 16:14> Treatment Plan Problems - Problems identified on initial assessmt Depression Date Initiated: 11/08/17 Time Initiated: 16:15 Assessment reference: NA Status: Active Suicidal Ideation Date Initiated: 11/08/17 Time Initiated: 16:15 Assessment reference: NA Status: Active Substance abuse Date Initiated: 11/08/17 Time Initiated: 16:15 Assessment reference: NA Status: Active Treatment assets and liabiliti Patient Assests: cooperative, educated, self-reliant, ADL independent Patient Liabilities: live alone, poor support system, relationship conflicts ( Both sons in detention), substance abuse (Alcohol), medical problems (Hypertension, COPD, Asthma) - Milieu Protocol Maintain good personal hygiene: daily Encourage regular showers, every shift Remind patient to perform daily oral care, every shift Assist patient to perform ADL's Conduct patient checks and document Observation sheet: Q15 minutes (For safety) Maintain personal safety: every shift Educate patient to report safety concerns to staff, every shift Monitor environment for contraband/sharps Medication safety: Monitor for expected outcome, potential side effects: every shift, Assess barriers to learning: every shift, Assess readiness for medication education: every shift <Dago Spann - Last Filed: 11/10/17 23:59> - Diagnosis (1) Bipolar 1 disorder, depressed Status: Acute Interventions: 11/10/17 23:59 Assess/adjust medications daily and /or as needed * See patient on an individual basis 7x/week to assess status of hallucinations * Discuss risks, benefits, side effects and alternatives of medications (2) Alcohol use disorder, severe, dependence Status: Acute Interventions: 11/10/17 23:54 Assess 7x/week regarding severity of withdrawal Educate regarding risks, benefits, side effects and alternatives of medications Use Motivational Interviewing for abstinence Use CBT for relapse prevention Medication management for withdrawal symptoms Encourage medication assisted treatment <Rody Thurston - Last Filed: 11/13/17 11:09> Family Contact Family involvement: Famliy/SO not involved - Goals for Treatment Patient goals for treatment: "I want to go home." Discharge/Continuing Care - Education Needs Education Needs: Patient Medication, Patient Coping Skills, Patient Placement options, Patient Community resources - Discharge Discharge Criteria: Tolerates medication w/o severe side effects, Free of Suicidal thoughts, No longer exhibiting s/s of withdrawal Discharge to:: Home - Treatment Team Participation Discussed with Family/SO: No Was Patient/Family/SO present at Treatment Team Meeting: Yes
[2017-11-09] MEDS: Multiple Vitamins Tab PO SCH (10:13)
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
[2017-11-09] MEDS ORDERED: Vitamins A & D Oint UD Foilpak TOP PRN (21:30)
[2017-11-10] MEDS ORDERED: Influenza Vaccine 60 mcg/0.5 mL SYR (4YR UP) IM ONE (10:00)
[2017-11-10] MEDS ORDERED: Pneumococcal 23-Valent Vaccine IM ONE (10:00)
[2017-11-10] MEDS: Multiple Vitamins Tab PO SCH (10:31)
--- NOTE | 2017-11-10 16:52 | PCM.PYCHPN ---
Psychiatric Progress Note - Psychiatric Progress Note Patient seen today, length of contact: 15 minutes Problems Identified/Issues Discussed: Patient was seen. Chart was reviewed important content noted. Nurse input received []. Patient has no new complaints. No events overnight. Patient slept well and is eating well. Patient denies etoh withdrawal symptoms. She denied suicidal or homicidal ideations. Patient does not report hallucinations. No delusions elicited. No paranoia elicited. Patient has remained in good clinical and behavioral control. Symptoms are improving, but needs more time to stabilize. Patient is finding medications beneficial and would like to continue with treatment plan. Patient appreciated that treatment team is trying to help. DSM 5 Symptoms Update: Bipolar 1 disorder current episode depressed Alcohol use disorder severe Medication Change: No Medical Record Reviewed: No Mental Status Examination - Cognitive Function Orientation: Person, Place, Situation, Time Memory: Intact Attention: WNL Concentration: WNL Association: WNL Fund of Knowledge: [facility] Decription of patient's judgement and insights: limited/limited Addtional comments: Calm cooperative, no tremors, tongue fasciculation, or nystagmus - Mood Mood: Depressed - Affect Affect: Constricted - Speech Speech: Appropriate - Formal Thought Process Formal Thought Process: No Impairment Psychotic Thoughts and Behaviors: denied - Suicidal Ideation Suicidal Ideation: No - Homicidal Ideation Homicidal Ideation: No Goal/Treatment Plan - Goal/Treatment Plan Need for Continued Stay: Discharge may exacerbated symptoms, Severe functional impairment Progress Toward Problem(s) and Goals/Treatment Plan: Continue current management and medications. Patient educated about risks, benefits, side effects & alternatives of meds. Pt verbalized understanding & agreed with the above.~ Therapy in milieu. Estimated Date of D/C: 11/13/17 - Smoking Cessation Smoking Cessation Initiated: Yes
[2017-11-11 05:55] VITALS: O2SAT 96
[2017-11-11] MEDS: Multiple Vitamins Tab PO SCH (10:24)
--- NOTE | 2017-11-11 11:24 | PCM.PYCHPN ---
Psychiatric Progress Note - Psychiatric Progress Note Patient seen today, length of contact: 15 minutes Medication Change: Yes Medical Record Reviewed: Yes Mental Status Examination - Cognitive Function Orientation: Person, Place, Situation, Time Memory: Intact Attention: WNL Concentration: Poor Association: WNL Fund of Knowledge: Poor - Mood Mood: Depressed, Anxious - Affect Affect: Constricted - Speech Speech: Appropriate - Formal Thought Process Formal Thought Process: No Impairment - Suicidal Ideation Suicidal Ideation: No - Homicidal Ideation Homicidal Ideation: No Goal/Treatment Plan - Goal/Treatment Plan Need for Continued Stay: Discharge may exacerbated symptoms, Severe functional impairment Progress Toward Problem(s) and Goals/Treatment Plan: Bipolar disorder depressed severe without psychotic features CBT Psychoeducation Supportive therapy, group therapy, individual therapy Cymbalta 30 mg PO Daily Seroquel 200 mg PO QHS Neurontin 300 mg PO TID Alcohol use disorder severe CBT Psychoeducation Supportive therapy, individual therapy Use [place] for abstinence Librium when necessary MVI Thiamine FA HTN Continue Amlodipine Asthma Continue inhaler Estimated Date of D/C: 11/13/17 - Smoking Cessation Smoking Cessation Initiated: No
--- NOTE | 2017-11-11 22:28 | CARD ---
APPROVED REPORT EKG Measurement Heart [id number] <Conclusion> Sinus tachycardia Otherwise normal ECG
[2017-11-12] MEDS: Multiple Vitamins Tab PO SCH (10:08)
--- NOTE | 2017-11-12 13:59 | PCM.PYCHPN ---
Psychiatric Progress Note - Psychiatric Progress Note Patient seen today, length of contact: 15 minutes Patient Chief Complaint: I am feeling little better Medication Change: Yes Medical Record Reviewed: Yes Mental Status Examination - Cognitive Function Orientation: Person, Place, Situation, Time Memory: Intact Attention: WNL Concentration: Poor Association: WNL Fund of Knowledge: Poor - Mood Mood: Depressed, Anxious - Affect Affect: Constricted - Speech Speech: Appropriate - Formal Thought Process Formal Thought Process: No Impairment - Suicidal Ideation Suicidal Ideation: No - Homicidal Ideation Homicidal Ideation: No Goal/Treatment Plan - Goal/Treatment Plan Need for Continued Stay: Discharge may exacerbated symptoms, Severe functional impairment Progress Toward Problem(s) and Goals/Treatment Plan: Bipolar disorder depressed severe without psychotic features CBT Psychoeducation Supportive therapy, group therapy, individual therapy Cymbalta 30 mg PO Daily Seroquel 200 mg PO QHS Neurontin 300 mg PO TID Alcohol use disorder severe CBT Psychoeducation Supportive therapy, individual therapy Use [place] for abstinence Librium when necessary MVI Thiamine FA HTN Continue Amlodipine Asthma Continue inhaler Estimated Date of D/C: 11/13/17
[2017-11-12] MEDS ORDERED: Aluminum Hydroxide/Magnesium Hydroxide Susp (30 mL) PO PRN (16:18)
[2017-11-12] MEDS: Pantoprazole 40 mg EC Tab PO SCH (16:50)
[2017-11-12] MEDS ORDERED: Albuterol HFA 90 mcg/actuation (8 g) INH PRN (23:14)
[2017-11-13] MEDS: Pantoprazole 40 mg EC Tab PO SCH (10:43)
[2017-11-13] MEDS: Multiple Vitamins Tab PO SCH (10:44)
--- NOTE | 2017-11-13 11:10 | PCM.PYCHPN ---
Psychiatric Progress Note - Psychiatric Progress Note Patient seen today, length of contact: 15 minutes Patient Chief Complaint: I am feeling much better.' Problems Identified/Issues Discussed: Patient seen and evaluated, chart reviewed and discussed with the nurse. She reports improvement in her mood and denies any feelings of hopelessness and helplessness. Patient reports improvement in her withdrawal symptoms. Patient is compliant with medications and denies any side effects. Symptoms are improving but need more time to stabilize. Support and psychoeducation given. Medication Change: Yes (increase Seroquel) Medical Record Reviewed: Yes Mental Status Examination - Cognitive Function Orientation: Person, Place, Situation, Time Memory: Intact Attention: WNL Concentration: WNL Association: WNL Fund of Knowledge: WNL - Mood Mood: Anxious - Affect Affect: Constricted - Speech Speech: Appropriate - Formal Thought Process Formal Thought Process: No Impairment - Suicidal Ideation Suicidal Ideation: No - Homicidal Ideation Homicidal Ideation: No Goal/Treatment Plan - Goal/Treatment Plan Need for Continued Stay: Discharge may exacerbated symptoms, Severe functional impairment Progress Toward Problem(s) and Goals/Treatment Plan: Bipolar disorder depressed severe without psychotic features CBT Psychoeducation Supportive therapy, group therapy, individual therapy Cymbalta 30 mg PO Daily Seroquel 300 mg PO QHS Neurontin 300 mg PO TID Alcohol use disorder severe CBT Psychoeducation Supportive therapy, individual therapy Use [place] for abstinence Librium when necessary MVI Thiamine FA HTN Continue Amlodipine Asthma Continue inhaler Estimated Date of D/C: 11/13/17 - Smoking Cessation Smoking Cessation Initiated: No
[2017-11-14 06:18] VITALS: BP 104/70; PULSE 92; RESP 18; TEMP 98.1
[2017-11-14] MEDS: Pantoprazole 40 mg EC Tab PO SCH (10:39)
[2017-11-14] MEDS: Multiple Vitamins Tab PO SCH (10:39)
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
== END 2017-11-14 12:05 | disposition home or self-care (01) | DRG 430 ==
LOC: C.ER 07:25 → C.5E 14:41
PROVIDERS: ADMIT Psychiatry & Neurology Psychiatry; ATTEND Psychiatry & Neurology Psychiatry
PROC: GZ3ZZZZ Medication Management (ICD-10-PCS; principal; 2017-11-08)
PROC: GZHZZZZ Group Psychotherapy (ICD-10-PCS; 2017-11-08)
PROC: GZ56ZZZ Individual Psychotherapy, Supportive (ICD-10-PCS; 2017-11-08)
PROC: HZ59ZZZ Individual Psychotherapy for Substance Abuse Treatment, Supportive (ICD-10-PCS; 2017-11-08)
DX: F31.4 Bipolar disorder, current episode depressed, severe, without psychotic features (principal); R45.851 Suicidal ideations; F10.20 Alcohol dependence, uncomplicated; F20.9 Schizophrenia, unspecified; J44.9 Chronic obstructive pulmonary disease, unspecified; F41.9 Anxiety disorder, unspecified; I10 Essential (primary) hypertension; F17.210 Nicotine dependence, cigarettes, uncomplicated; Z79.899 Other long term (current) drug therapy

== ENCOUNTER 2018-06-03 20:03 | Emergency (ER) | payer MEDICAID, OTHER ==
[2018-06-03 20:04] VITALS: BMI 36.0
[2018-06-03 20:15] VITALS: RESP 20; TEMP 98.8; O2SAT 98
--- NOTE | 2018-06-03 20:28 | C.PDOC ---
History Of Present Illness Patient presents to the ER stating she feels depressed and ahs been drinking all day. Patient denies any suicidal plan or homicidal ideation. Time Seen by Provider: 06/03/18 20:27 Chief Complaint (Nursing): Psychiatric Evaluation History Per: Patient History/Exam Limitations: no limitations Onset/Duration Of Symptoms: Hrs Current Symptoms Are (Timing): Still Present Suicide/Self Injury Attempted (Context): None Modifying Factor(s): Alcohol Severity: None Pain Scale Rating Of: 0 Associated Symptoms: Depression. denies: Suicidal Plan, Other (Homicidal ideation) Involuntary Hold By: None Recent travel outside of the [place]: No Past Medical History Reviewed: Historical Data, Nursing Documentation, Vital Signs Vital Signs: Last Vital Signs Temp 98.8 F 06/03/18 20:10 Pulse 113 H 06/03/18 20:10 Resp 20 06/03/18 20:10 BP 123/91 H 06/03/18 20:10 Pulse Ox 98 06/03/18 21:08 - Medical History PMH: Anxiety, Asthma, Bipolar Disorder, COPD, Depression, Fractures, HTN, Hyperlipidemia, Schizophrenia Surgical History: (x 4) - [facility] Procedures APPLICATION OF SPLINT (06/12/13) DETOXIFICATION SERVICES FOR SUBSTANCE ABUSE TREATMENT (03/06/17) GROUP ACID PURIFIER FOR SUBSTANCE ABUSE TREATMENT, PSYCHOEDUCATION (03/06/17) GROUP ACID PURIFIER FOR SUBSTANCE ABUSE, COGNITIVE BEHAVIORAL (03/06/17) GROUP PSYCHOTHERAPY (11/24/17) INDIV ACID PURIFIER FOR SUBSTANCE ABUSE TREATMENT, PSYCHOEDUCATION (03/06/17) INDIV ACID PURIFIER FOR SUBSTANCE ABUSE, COGNITIVE BEHAVIORAL (03/06/17) INDIV PSYCHOTHERAPY FOR SUBSTANCE ABUSE TREATMENT, SUPPORT (11/08/17) INDIVID PSYCHOTHERAP NEC (05/23/14) INDIVIDUAL PSYCHOTHERAPY, BEHAVIORAL (11/24/17) INDIVIDUAL PSYCHOTHERAPY, SUPPORTIVE (11/08/17) INJECT/INFUSE NEC (05/14/14) MEDICATION MANAGEMENT (11/08/17) OTHER GROUP THERAPY (05/23/14) VACCINATION NEC (04/07/15) Family History: States: No Known Family Hx - Social History Hx Tobacco Use: No Hx Alcohol Use: Yes Hx Substance Use: No - Immunization History Hx Tetanus Toxoid Vaccination: No Hx Influenza Vaccination: No Hx Pneumococcal Vaccination: No Review Of Systems Constitutional: Negative for: Fever, Chills Cardiovascular: Negative for: Chest Pain, Palpitations Respiratory: Negative for: Cough, Shortness of Breath Gastrointestinal: Negative for: Nausea, Vomiting Psych: Positive for: Depression. Negative for: Other (Suicidal plan, homicidal ideation) Physical Exam - Physical Exam Appears: Non-toxic, Other (Crying) Skin: Warm, Dry Head: Normacephalic Oral Mucosa: Moist Chest: Symmetrical, No Tenderness Cardiovascular: Rhythm Regular Respiratory: No Rales, No Rhonchi, No Wheezing Gastrointestinal/Abdominal: Soft, No Tenderness Neurological/Psych: Oriented x3 ED Course And Treatment - Laboratory Results Result Diagrams: 06/03/18 20:58 06/03/18 20:58 O2 Sat by Pulse Oximetry: 98 (Room air) Pulse Ox Interpretation: Normal Progress Note: Blood work and urinalysis ordered. Crisis notified. Patient was cleared for discharge by dr Vargas. Will follow up with her own therapist. Pt is clinically sober Disposition Counseled Patient/Family Regarding: Studies Performed, Diagnosis, Need For Followup - Disposition Disposition: HOME/ ROUTINE Disposition Time: 20:27 Condition: FAIR Additional Instructions: Please follow up with your own doctor Instructions: Depression, Adult (DC) Forms: [employer] ([place]) - Clinical Impression Clinical Impression: Depression, Alcohol intoxication - Scribe Statement The provider has reviewed the documentation as recorded by the Scribnorman Hou All medical record entries made by the Scribe were at my direction and personally dictated by me. I have reviewed the chart and agree that the record accurately reflects my personal performance of the history, physical exam, medical decision making, and the department course for this patient. I have also personally directed, reviewed, and agree with the discharge instructions and disposition.
[2018-06-03 21:02] LABS: BASO # 0.1 K/uL (0.0-0.2); BASO % 0.8 % (0.0-2.0); EOS # 0.1 K/uL (0.0-0.7); EOS % 1.2 % (0.0-4.0); HEMOGLOBIN 12.5 g/dL (11.0-16.0); LYMPH # 3.2 K/uL (1.0-4.3); LYMPH % 33.4 % (20.0-40.0); MEAN CELL VOLUME 84.2 fL (81.0-99.0); MEAN CORPUSCULAR HEMOGLOBIN 28.2 pg (27.0-31.0); MEAN CORPUSCULAR HGB CONC 33.4 g/dL (33.0-37.0); MEAN PLATELET VOLUME 7.3 fL (7.2-11.7); MONO # 0.6 K/uL (0.0-0.8); MONO % 6.6 % (0.0-10.0); NEUT # 5.6 K/uL (1.8-7.0); NRBC % 0.1 % (0.0-2.0); RBC 4.45 Mil/uL (3.80-5.20); RED CELL DISTRIBUTION WIDTH 14.8 % (11.5-14.5); WHITE BLOOD COUNT 9.6 K/uL (4.8-10.8)
[2018-06-03 21:14] LABS: ALB/GLOB RATIO 1.4 (1.0-2.1); ALBUMIN 4.9 g/dL (3.5-5.0); ALT/SGPT 47 U/L (9-52); AST/SGOT 40 U/L (14-36); BLOOD UREA NITROGEN 4 mg/dL (7-17); CALCIUM 9.4 mg/dl (8.6-10.4); GFR AFRICAN-AMERICAN > 60; GFR NON-AFRICAN AMERICAN > 60
[2018-06-03] MEDS ORDERED: Potassium Chloride 10 mEq ER Tab PO STA (21:18)
[2018-06-03] MEDS ORDERED: Potassium Chloride 20 mEq ER Tab PO ONE (21:25)
[2018-06-03 21:38] VITALS: BP 121/0; PULSE 74
== END 2018-06-03 21:37 | disposition home or self-care (01) ==
LOC: C.ER 20:03
DX: F32.9 Major depressive disorder, single episode, unspecified (principal); F10.129 Alcohol abuse with intoxication, unspecified; I10 Essential (primary) hypertension; E78.5 Hyperlipidemia, unspecified; F17.210 Nicotine dependence, cigarettes, uncomplicated

== ENCOUNTER 2018-06-12 21:55 | Inpatient (IN) | payer MEDICAID, OTHER ==
[2018-06-12 21:55] VITALS: BMI 36.0
--- NOTE | 2018-06-12 22:23 | C.PDOC ---
History Of Present Illness Patient presents to the ER via EMS with a complaint of feeling depressed. Denies suicidal ideation or homicidal ideation. She states her sister in law called the suicide hotline not her. Time Seen by Provider: 06/12/18 22:19 Chief Complaint (Nursing): Psychiatric Evaluation History Per: Patient History/Exam Limitations: no limitations Onset/Duration Of Symptoms: Days Current Symptoms Are (Timing): Still Present Suicide/Self Injury Attempted (Context): None Modifying Factor(s): Alcohol Severity: None Pain Scale Rating Of: 0 Associated Symptoms: Depression. denies: Suicidal Thoughts, Other (Homicidal ideation) Involuntary Hold By: None Recent travel outside of the [place]: No Additional History Per: Patient Past Medical History Reviewed: Historical Data, Nursing Documentation, Vital Signs Vital Signs: Last Vital Signs Temp 99.3 F 06/12/18 22:05 Pulse 122 H 06/12/18 22:05 Resp 22 06/12/18 22:05 BP 145/115 H 06/12/18 22:05 Pulse Ox 94 L 06/12/18 22:41 - Medical History PMH: Anxiety, Asthma, Bipolar Disorder, COPD, Depression, Fractures, HTN, Hypercholesterolemia, Hyperlipidemia, Schizophrenia Denies: Diabetes, Hepatitis, HIV, Chronic Kidney Disease, Seizures, Sexually Transmitted Disease Surgical History: (x 4) - [facility] Procedures APPLICATION OF SPLINT (06/12/13) DETOXIFICATION SERVICES FOR SUBSTANCE ABUSE TREATMENT (03/06/17) GROUP ORDINARY SEAMAN FOR SUBSTANCE ABUSE TREATMENT, PSYCHOEDUCATION (03/06/17) GROUP ORDINARY SEAMAN FOR SUBSTANCE ABUSE, COGNITIVE BEHAVIORAL (03/06/17) GROUP PSYCHOTHERAPY (11/24/17) INDIV ORDINARY SEAMAN FOR SUBSTANCE ABUSE TREATMENT, PSYCHOEDUCATION (03/06/17) INDIV ORDINARY SEAMAN FOR SUBSTANCE ABUSE, COGNITIVE BEHAVIORAL (03/06/17) INDIV PSYCHOTHERAPY FOR SUBSTANCE ABUSE TREATMENT, SUPPORT (11/08/17) INDIVID PSYCHOTHERAP NEC (05/23/14) INDIVIDUAL PSYCHOTHERAPY, BEHAVIORAL (11/24/17) INDIVIDUAL PSYCHOTHERAPY, SUPPORTIVE (11/08/17) INJECT/INFUSE NEC (05/14/14) MEDICATION MANAGEMENT (11/08/17) OTHER GROUP THERAPY (05/23/14) VACCINATION NEC (04/07/15) Family History: States: No Known Family Hx - Social History Hx Tobacco Use: No Hx Alcohol Use: Yes Hx Substance Use: Yes - Immunization History Hx Tetanus Toxoid Vaccination: No Hx Influenza Vaccination: No Hx Pneumococcal Vaccination: No Review Of Systems Constitutional: Negative for: Fever, Chills Cardiovascular: Negative for: Chest Pain, Palpitations Respiratory: Negative for: Cough, Shortness of Breath Gastrointestinal: Negative for: Nausea, Vomiting Genitourinary: Negative for: Dysuria Musculoskeletal: Negative for: Back Pain Skin: Negative for: Rash Neurological: Negative for: Weakness Psych: Positive for: Depression. Negative for: Suicidal ideation, Other ( Homicidal ideation) Physical Exam - Physical Exam Appears: Non-toxic Skin: Warm, Dry Head: Normacephalic Eye(s): bilateral: Normal Inspection Oral Mucosa: Moist Neck: Supple Chest: Symmetrical, No Tenderness Cardiovascular: Rhythm Regular Respiratory: No Rales, No Rhonchi, No Wheezing Gastrointestinal/Abdominal: Soft, No Tenderness Back: Normal Inspection Extremity: Normal ROM Neurological/Psych: Oriented x3, Normal Speech Gait: Steady ED Course And Treatment - Laboratory Results Result Diagrams: 06/12/18 22:47 06/12/18 22:47 O2 Sat by Pulse Oximetry: 94 (room air) Pulse Ox Interpretation: Normal Disposition Discussed With : Coy Vargas Comment: accepted the pt on his service and took over the care at 10:41 PM Doctor Will See Patient In The: Hospital Counseled Patient/Family Regarding: Studies Performed, Diagnosis - Disposition Disposition: HOSPITALIZED Disposition Time: 22:20 Condition: FAIR - POA Present On Arrival: None - Clinical Impression Clinical Impression: Major depression - Scribe Statement The provider has reviewed the documentation as recorded by the Prettyibnorman Hou All medical record entries made by the Prettyibnorman were at my direction and personally dictated by me. I have reviewed the chart and agree that the record accurately reflects my personal performance of the history, physical exam, medical decision making, and the department course for this patient. I have also personally directed, reviewed, and agree with the discharge instructions and disposition. Decision To Admit - Pt Status Changed To: Hospital Disposition Of: Inpatient - Admit Certification Admit to Inpatient:: After my assessment, the patient will require hospitalization for at least two midnights. This is because of the severity of symptoms shown, intensity of services needed, and/or the medical risk in this patient being treated as an outpatient. - InPatient: Physician Admission Certification: I certify that this patient requires 2 or more midnights of care for the following reason:: After my assessment, the patient will require hospitalization for at least two midnights. This is because of the severity of symptoms shown, intensity of services needed, and/or the medical risk in this patient being treated as an outpatient. - . Bed Request Type: Psychiatry Admitting Physician: Coy Vargas Patient Diagnosis: Major depression
[2018-06-12 22:53] LABS: BASO # 0.1 K/uL (0.0-0.2); BASO % 0.5 % (0.0-2.0); EOS # 0.2 K/uL (0.0-0.7); EOS % 1.7 % (0.0-4.0); HEMOGLOBIN 12.1 g/dL (11.0-16.0); LYMPH # 4.9 K/uL (1.0-4.3); LYMPH % 48.8 % (20.0-40.0); MEAN CELL VOLUME 84.5 fL (81.0-99.0); MEAN CORPUSCULAR HEMOGLOBIN 28.1 pg (27.0-31.0); MEAN CORPUSCULAR HGB CONC 33.3 g/dL (33.0-37.0); MEAN PLATELET VOLUME 6.8 fL (7.2-11.7); MONO # 0.8 K/uL (0.0-0.8); MONO % 8.1 % (0.0-10.0); NEUT # 4.1 K/uL (1.8-7.0); NEUT % 40.9 % (50.0-75.0); NRBC % 0.1 % (0.0-2.0); RBC 4.28 Mil/uL (3.80-5.20); RED CELL DISTRIBUTION WIDTH 15.3 % (11.5-14.5); WHITE BLOOD COUNT 10.1 K/uL (4.8-10.8)
[2018-06-12 23:10] LABS: ALB/GLOB RATIO 1.3 (1.0-2.1); ALBUMIN 4.3 g/dL (3.5-5.0); ALT/SGPT 47 U/L (9-52); AST/SGOT 54 U/L (14-36); BLOOD UREA NITROGEN 8 mg/dL (7-17); CALCIUM 9.4 mg/dl (8.6-10.4); GFR AFRICAN-AMERICAN > 60; GFR NON-AFRICAN AMERICAN > 60
[2018-06-12 23:11] LABS: URINE BILIRUBIN NEGATIVE (NEGATIVE); URINE BLOOD 1+ (NEGATIVE); URINE CLARITY Clear (Clear); URINE COLOR Colorless (YELLOW); URINE GLUCOSE (UA) NORMAL (Normal); URINE LEUKOCYTE ESTERASE NEG Leu/uL (Negative); URINE PROTEIN NEGATIVE (NEGATIVE); URINE UROBILINOGEN NORMAL mg/dL (0.2-1.0)
[2018-06-12 23:23] LABS: BARBITURATES, UR NEGATIVE (NEGATIVE); BENZODIAZEPINES, UR NEGATIVE (NEGATIVE); OPIATES, UR NEGATIVE (NEGATIVE); PHENCYCLIDINE, UR NEGATIVE (NEGATIVE)
[2018-06-13] MEDS ORDERED: Aritificial Tears (15ml) OU PRN (01:33)
--- NOTE | 2018-06-13 01:43 | PCM.BM ---
<Garrick Oorzco - Last Filed: 06/13/18 01:41> Treatment Plan Problems - Problems identified on initial assessmt MAJOR DEPRESSION Date Initiated: 06/13/18 Time Initiated: : Assessment reference: NA Status: Active SUBSTANCE ABUSE Date Initiated: 06/13/18 Time Initiated: Assessment reference: NA Status: Active Comment: FIRST TIME USER OF COCAINE STATED AND ALCOHOL ABUSE. Treatment assets and liabiliti Patient Assests: adapts well, cooperative, resourceful, self-reliant, ADL independent, negotiates basic needs, cognitively intact Patient Liabilities: live alone, financial problems, poor support system, substance abuse, medical problems, legal issue - Milieu Protocol Maintain good personal hygiene: daily Encourage regular showers, daily Remind patient to perform daily oral care, daily Assist patient to perform ADL's Maintain personal safety: every shift Educate patient to report safety concerns to staff, every shift Monitor environment for contraband/sharps Medication safety: Monitor for expected outcome, potential side effects: every shift, Assess barriers to learning: every shift, Assess readiness for medication education: every shift <Dago Spann - Last Filed: 06/13/18 20:52> - Diagnosis (1) Bipolar 1 disorder, depressed, severe Status: Acute Interventions: 06/13/18 20:51 * Assess/adjust medications daily and /or as needed * See patient on an individual basis 7x/week to assess symptoms of depression * Monitor for side effects & effectiveness of medications (2) Alcohol use disorder, severe, dependence Status: Acute Interventions: 06/13/18 20:52 * Assess 7x/week regarding severity of withdrawal * Educate regarding risks, benefits, side effects and alternatives of medications * Use Motivational Interviewing for abstinence * Use CBT for relapse prevention * Medication management for withdrawal symptoms * Encourage medication assisted treatment (3) Cannabis use disorder, moderate, dependence Status: Acute Interventions: 06/13/18 20:53 * Assess 7x/week regarding severity of withdrawal * Educate regarding risks, benefits, side effects and alternatives of medications * Use Motivational Interviewing for abstinence * Use CBT for relapse prevention * Medication management for withdrawal symptoms * Encourage medication assisted treatment (4) Cocaine use disorder, mild, abuse Status: Acute Interventions: 06/13/18 20:53 * Assess 7x/week regarding severity of withdrawal * Educate regarding risks, benefits, side effects and alternatives of medications * Use Motivational Interviewing for abstinence * Use CBT for relapse prevention * Medication management for withdrawal symptoms * Encourage medication assisted treatment (5) Cocaine use disorder Status: Acute Interventions: 06/13/18 20:53 * Assess 7x/week regarding severity of withdrawal * Educate regarding risks, benefits, side effects and alternatives of medications * Use Motivational Interviewing for abstinence * Use CBT for relapse prevention * Medication management for withdrawal symptoms * Encourage medication assisted treatment <Rody Thurston - Last Filed: 06/16/18 14:34> Family Contact Family involvement: Famliy/SO not involved - Goals for Treatment Patient goals for treatment: "I want to be stable." Discharge/Continuing Care - Education Needs Education Needs: Patient Medication, Patient Coping Skills - Discharge Discharge Criteria: Tolerates medication w/o severe side effects, Reduction of target symptoms Discharge to:: Home - Treatment Team Participation Discussed with Family/SO: No Was Patient/Family/SO present at Treatment Team Meeting: Yes
[2018-06-13] MEDS: Multiple Vitamins Tab PO SCH (10:44)
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
[2018-06-14] MEDS ORDERED: Pneumococcal 23-Valent Vaccine IM ONE (10:00)
[2018-06-14] MEDS: Multiple Vitamins Tab PO SCH (10:20)
--- NOTE | 2018-06-14 13:43 | PCM.PYCHPN ---
Psychiatric Progress Note - Psychiatric Progress Note Patient seen today, length of contact: 16 min Patient Chief Complaint: "I need my antidepressant" Problems Identified/Issues Discussed: The pt is seen, chart reviewed, case discussed with staff. The pt is compliant with medications and reports no side-effects. Symptoms are improving but needs more time to stabilize. Pt attends groups and activities. Support given, psycho-education provided. After care discussed. Risks of suicide discussed - she has been admitted many times and she is a chronic risk with many gestures Medication Change: Yes (meds started) Medical Record Reviewed: Yes Mental Status Examination - Cognitive Function Orientation: Person, Place, Situation, Time Memory: Impaired Attention: Poor Concentration: Poor Association: WNL Fund of Knowledge: WNL - Mood Mood: Depressed - Affect Affect: Constricted - Speech Speech: Appropriate - Formal Thought Process Formal Thought Process: No Impairment - Suicidal Ideation Suicidal Ideation: No - Homicidal Ideation Homicidal Ideation: No Goal/Treatment Plan - Goal/Treatment Plan Need for Continued Stay: Discharge may exacerbated symptoms, Severe functional impairment Progress Toward Problem(s) and Goals/Treatment Plan: Start Lexapro Continue seroquel and librium detox (she refuses though) Prn medications All risks, benefits and alternatives of medications, including no medications, discussed and the patient understood and agreed. Attend groups and activities Individual therapy Psychoeducation and support Encourage compliance with meds and after care Refer to outpatient program Teach healthy lifestyle methods, i.e. diet, exercise, meditation Smoking cessation Estimated Date of D/C: 06/18/18
[2018-06-15] MEDS: Multiple Vitamins Tab PO SCH (09:37)
[2018-06-15] MEDS ORDERED: Albuterol HFA 90 mcg/actuation (8 g) IH PRN (10:30)
--- NOTE | 2018-06-16 00:11 | PCM.PYCHPN ---
Psychiatric Progress Note - Psychiatric Progress Note Patient seen today, length of contact: 16 min Patient Chief Complaint: "I am OK" Problems Identified/Issues Discussed: The pt is seen, chart reviewed, case discussed with staff. Support and psychoeducation given, CBT and MD used briefly No new symptoms reported, improving slowly and needs more time No SEs from medications, risks discussed. After care discussed Medication Change: Yes Medical Record Reviewed: Yes Mental Status Examination - Cognitive Function Orientation: Person, Place, Situation, Time Memory: Impaired Attention: Poor Concentration: Poor Association: WNL Fund of Knowledge: WNL - Mood Mood: Depressed - Affect Affect: Constricted - Speech Speech: Appropriate - Formal Thought Process Formal Thought Process: No Impairment - Suicidal Ideation Suicidal Ideation: No - Homicidal Ideation Homicidal Ideation: No Goal/Treatment Plan - Goal/Treatment Plan Need for Continued Stay: Discharge may exacerbated symptoms, Severe functional impairment Progress Toward Problem(s) and Goals/Treatment Plan: Lexapro Continue seroquel and librium detox Prn medications All risks, benefits and alternatives of medications, including no medications, discussed and the patient understood and agreed. Attend groups and activities Individual therapy Psychoeducation and support Encourage compliance with meds and after care Refer to outpatient program Teach healthy lifestyle methods, i.e. diet, exercise, meditation Smoking cessation Estimated Date of D/C: 06/18/18
[2018-06-16] MEDS: Multiple Vitamins Tab PO SCH (09:45)
--- NOTE | 2018-06-16 10:56 | PCM.PYCHPN ---
Psychiatric Progress Note - Psychiatric Progress Note Patient seen today, length of contact: 16 min Medication Change: Yes (meds started) Medical Record Reviewed: Yes Mental Status Examination - Cognitive Function Orientation: Person, Place, Situation, Time Memory: Impaired Attention: Poor Concentration: Poor Association: WNL Fund of Knowledge: WNL - Mood Mood: Depressed - Affect Affect: Constricted - Speech Speech: Appropriate - Formal Thought Process Formal Thought Process: No Impairment - Suicidal Ideation Suicidal Ideation: No - Homicidal Ideation Homicidal Ideation: No Goal/Treatment Plan - Goal/Treatment Plan Need for Continued Stay: Discharge may exacerbated symptoms, Severe functional impairment Progress Toward Problem(s) and Goals/Treatment Plan: Bipolar 1 disorder depressed Alcohol use disorder severe Alcohol withdrawal Cannabis use disorder moderate Cocaine use disorder Patient education. Supportive therapy. CBT for relapse or attention. MRI for abstinence. We'll start Librium taper for alcohol withdrawal symptoms. Other when necessary medications. Patient wants to go to [facility] for follow-up care after discharge from the hospital. Estimated Date of D/C: 06/18/18
[2018-06-17] MEDS: Multiple Vitamins Tab PO SCH (09:36)
--- NOTE | 2018-06-17 12:35 | PCM.PYCHPN ---
Psychiatric Progress Note - Psychiatric Progress Note Patient seen today, length of contact: 16 min Patient Chief Complaint: "I feel anxious" Problems Identified/Issues Discussed: The patient was seen and chart was discussed with the nurse. The patient states that she is feeling better. She states that she does feel anxious however and had a high pulse over night. She denies any suicidal or homicidal ideations. Medication Change: Yes (meds started) Medical Record Reviewed: Yes Mental Status Examination - Cognitive Function Orientation: Person, Place, Situation, Time Memory: Impaired Attention: Poor Concentration: Poor Association: WNL Fund of Knowledge: WNL - Mood Mood: Depressed, Anxious - Affect Affect: Constricted - Speech Speech: Appropriate - Formal Thought Process Formal Thought Process: No Impairment - Suicidal Ideation Suicidal Ideation: No - Homicidal Ideation Homicidal Ideation: No Goal/Treatment Plan - Goal/Treatment Plan Need for Continued Stay: Discharge may exacerbated symptoms, Severe functional impairment Progress Toward Problem(s) and Goals/Treatment Plan: Bipolar 1 disorder depressed Alcohol use disorder severe Alcohol withdrawal Cannabis use disorder moderate Cocaine use disorder The pt is seen, chart reviewed, case discussed with staff. Support and psychoeducation given, CBT and MS used briefly No new symptoms reported, improving slowly and needs more time No SEs from medications, risks discussed. After care discussed Librium 25 mg PO Clonidine 0.1 mg PO Q4 PRN Lexapro 10 mg PO Seroquel 100 mg PO Trazadone 50 mg PO Patient education. CBT for relapse or attention. MS for abstinence. Estimated Date of D/C: 06/18/18
[2018-06-18] MEDS: Multiple Vitamins Tab PO SCH (09:42)
--- NOTE | 2018-06-18 10:32 | PCM.PYCHPN ---
Psychiatric Progress Note - Psychiatric Progress Note Patient seen today, length of contact: 16 min Patient Chief Complaint: "I feel fine" Problems Identified/Issues Discussed: The patient was seen and chart was discussed with the nurse. The patient states that she is feeling better. She reports that she slept better overnight. She denies any suicidal or homicidal ideations. Medication Change: Yes (meds started) Medical Record Reviewed: Yes Mental Status Examination - Cognitive Function Orientation: Person, Place, Situation, Time Memory: Impaired Attention: Poor Concentration: Poor Association: WNL Fund of Knowledge: WNL - Mood Mood: Depressed, Anxious - Affect Affect: Constricted - Speech Speech: Appropriate - Formal Thought Process Formal Thought Process: No Impairment - Suicidal Ideation Suicidal Ideation: No - Homicidal Ideation Homicidal Ideation: No Goal/Treatment Plan - Goal/Treatment Plan Need for Continued Stay: Discharge may exacerbated symptoms, Severe functional impairment Progress Toward Problem(s) and Goals/Treatment Plan: Bipolar 1 disorder depressed Alcohol use disorder severe Alcohol withdrawal Cannabis use disorder moderate Cocaine use disorder The pt is seen, chart reviewed, case discussed with staff. Support and psychoeducation given, CBT and NE used briefly No new symptoms reported, improving slowly and needs more time No SEs from medications, risks discussed. After care discussed Librium 25 mg PO Clonidine 0.1 mg PO Q4 PRN Lexapro 10 mg PO Seroquel 100 mg PO Trazadone 50 mg PO Patient education. CBT for relapse or attention. NE for abstinence. Estimated Date of D/C: 06/18/18
[2018-06-19 06:47] VITALS: BP 107/70; PULSE 110; RESP 20; TEMP 98.8; O2SAT 98
[2018-06-19] MEDS: Multiple Vitamins Tab PO SCH (09:37)
--- NOTE | 2018-06-19 10:15 | PCM.PYCHDC ---
Mental Status Examination - Mental Status Examination Orientation: Person, Place, Situation, Time Memory: Intact Mood: Neutral Affect: Constricted Speech: Soft Attention: WNL Concentration: WNL Association: WNL Fund of Knowledge: WNL Formal Thought Process: No Impairment Description of patient's judgement and insight: good, fair Psychotic Thoughts and Behaviors: denies any AVH Suicidal Ideation: No Current Homicidal Ideation?: No Discharge Summary - Discharge Note Reason for Hospitalization: Pt is a 42 yo female with H/O Bipolar I d/o and alcohol use disorder, who was admitted to the hospital for depression and suicidal ideation. Pt is currently single, lives alone, has 7 children between the ages of 22 and 13 from 3 different males and who live with their father. Patient reported that she was noncompliant with treatment, was taking Cymbalta. Patient reported that she started feeling increasingly depressed after of her significant other by overdose. After that decreased sleep and feeling tired and decrease appetite and lost about 20 pounds within last 5 months from. Started having suicidal ideations with no plan. Patient reported she has history of more than 40 suicidal attempts by overdose of falling from height or hanging. History of more than 10 inpatient psychiatric admissions. Also reported crying a lot with hopelessness helplessness and guilty for stop denied any psychotic features but history of manic episodes in the past. Alcohol: Started drinking alcohol at 7 years of age increased gradually. Currently she was drinking beer up to the point of passing out. Last used yesterday, 4 beers. History of 2 previous detox and 2 rehabs. Cocaine: Drug screen was also positive for cocaine which patient reported he used only once 2 days ago. Also history of cannabis use last used 2 weeks ago. Patient was guarded about further use of cannabis. She also smokes one pack of cigarettes daily but refuses to take nicotine patch. She was born in [place], has 11th grade of education. Not working, on disability. 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 Patient lives alone. Her height is 5 feet 8 inches and weight is 220 pounds. Consultations:: List each consultation separately and include: 1. Reason for request. 2. Findings. 3. Follow-up Summary of Hospital Course include:: 1. Description of specific treatment plan utilized for patients during their course of treatmen. 2. Summarize the time- course for resolution of acute symptoms and/or regressed behaviors. 3. Describe issues identified and worked on during hospitalization. 4. Describe medication utilized. 5. Describe medical problems identified and treated. 6. Reassessment of suicide risk - Final Diagnosis (DSM 5) Condition upon Discharge: FAIR DSM 5: Bipolar 1 disorder depressed Alcohol use disorder severe Alcohol withdrawal Cannabis use disorder moderate Cocaine use disorder Disposition: HOME/ ROUTINE Follow-up Treatment Plan: Bipolar 1 disorder depressed Alcohol use disorder severe Alcohol withdrawal Cannabis use disorder moderate Cocaine use disorder The pt is seen, chart reviewed, case discussed with staff. Support and psychoeducation given, CBT and WA used briefly No new symptoms reported, improving slowly and needs more time No SEs from medications, risks discussed. After care discussed Librium 25 mg PO Clonidine 0.1 mg PO Q4 PRN Lexapro 10 mg PO Seroquel 100 mg PO Trazadone 50 mg PO Patient education. CBT for relapse or attention. WA for abstinence. Prescriptions/Medication Reconciliation: Escitalopram [Lexapro] 10 mg PO DAILY #30 tab QUEtiapine [Seroquel] 100 mg PO HS #60 tab traZODone [Desyrel] 50 mg PO HS PRN #30 tab PRN Reason: Insomnia
== END 2018-06-19 10:38 | disposition home or self-care (01) | DRG 430 ==
LOC: C.ER 21:55 → C.9E 22:33 → C.5E 23:22
PROVIDERS: ADMIT Psychiatry & Neurology Psychiatry; ATTEND Psychiatry & Neurology Psychiatry
PROC: HZ2ZZZZ Detoxification Services for Substance Abuse Treatment (ICD-10-PCS; principal; 2018-06-12)
PROC: GZHZZZZ Group Psychotherapy (ICD-10-PCS; 2018-06-12)
PROC: HZ52ZZZ Individual Psychotherapy for Substance Abuse Treatment, Cognitive-Behavioral (ICD-10-PCS; 2018-06-12)
PROC: HZ59ZZZ Individual Psychotherapy for Substance Abuse Treatment, Supportive (ICD-10-PCS; 2018-06-12)
PROC: HZ56ZZZ Individual Psychotherapy for Substance Abuse Treatment, Psychoeducation (ICD-10-PCS; 2018-06-12)
PROC: HZ42ZZZ Group Counseling for Substance Abuse Treatment, Cognitive-Behavioral (ICD-10-PCS; 2018-06-12)
PROC: HZ46ZZZ Group Counseling for Substance Abuse Treatment, Psychoeducation (ICD-10-PCS; 2018-06-12)
PROC: GZ58ZZZ Individual Psychotherapy, Cognitive-Behavioral (ICD-10-PCS; 2018-06-12)
PROC: GZ56ZZZ Individual Psychotherapy, Supportive (ICD-10-PCS; 2018-06-12)
DX: F31.4 Bipolar disorder, current episode depressed, severe, without psychotic features (principal); F10.230 Alcohol dependence with withdrawal, uncomplicated; F14.10 Cocaine abuse, uncomplicated; J44.9 Chronic obstructive pulmonary disease, unspecified; F12.20 Cannabis dependence, uncomplicated; R45.851 Suicidal ideations; E78.00 Pure hypercholesterolemia, unspecified; F20.9 Schizophrenia, unspecified; Y90.8 Blood alcohol level of 240 mg/100 ml or more; F17.210 Nicotine dependence, cigarettes, uncomplicated; I10 Essential (primary) hypertension

== ENCOUNTER 2018-09-01 23:22 | Emergency (ER) | payer MEDICAID, OTHER ==
[2018-09-01 23:22] VITALS: BMI 36.0
== END 2018-09-01 23:29 | disposition left against medical advice (07) ==
LOC: C.ER 23:22
DX: Z02.89 Encounter for other administrative examinations (principal); F19.10 Other psychoactive substance abuse, uncomplicated

== ENCOUNTER 2018-09-09 10:48 | Emergency (ER) | payer OTHER ==
[2018-09-09 10:48] VITALS: BMI 36.0
[2018-09-09 11:01] VITALS: BP 139/94; PULSE 84; RESP 20; TEMP 98; O2SAT 99
--- NOTE | 2018-09-09 11:54 | RAD ---
Date of service: 09/09/2018 PROCEDURE: Radiographs of the Left Forearm HISTORY: TRAUMA COMPARISON: None available. TECHNIQUE: Frontal and lateral views obtained. FINDINGS: BONES: No fracture or destructive lesion. JOINT SPACES: Unremarkable. OTHER FINDINGS: None. IMPRESSION: Unremarkable radiographs of the left forearm.
--- NOTE | 2018-09-09 11:55 | C.PDOC ---
History Of Present Illness 43 y/o female, with no significant PMHx, presents to the ED for evaluation of left elbow pain after sustaining mechanical fall, 4-5 days ago. Today she noticed some swelling over the left olecranon. Otherwise pt denies head injury, LOC, syncope, neck pain, CP, denies obvious deformity to Left arm, denies weakness, sensorivascular deficits to Left arm. Ambulate to Ed for evaluation,not in any apparent distress. Time Seen by Provider: 09/09/18 11:18 Chief Complaint (Nursing): Upper Extremity Problem/Injury History Per: Patient History/Exam Limitations: no limitations Onset/Duration Of Symptoms: Days Current Symptoms Are (Timing): Still Present Past Medical History Reviewed: Historical Data, Nursing Documentation, Vital Signs Vital Signs: Last Vital Signs Temp 98.0 F 09/09/18 10:58 Pulse 84 09/09/18 10:58 Resp 20 09/09/18 10:58 BP 139/94 H 09/09/18 10:58 Pulse Ox 99 09/09/18 10:58 - Medical History PMH: Anxiety, Asthma, Bipolar Disorder, COPD, Depression, Fractures, HTN, Hypercholesterolemia, Hyperlipidemia, Schizophrenia Denies: Diabetes, Hepatitis, HIV, Chronic Kidney Disease, Seizures, Sexually Transmitted Disease Surgical History: (x 4) - [facility] Procedures APPLICATION OF SPLINT (06/12/13) DETOXIFICATION SERVICES FOR SUBSTANCE ABUSE TREATMENT (06/12/18) GROUP SCRUMMASTER FOR SUBSTANCE ABUSE TREATMENT, PSYCHOEDUCATION (06/12/18) GROUP SCRUMMASTER FOR SUBSTANCE ABUSE, COGNITIVE BEHAVIORAL (06/12/18) GROUP PSYCHOTHERAPY (06/12/18) INDIV SCRUMMASTER FOR SUBSTANCE ABUSE TREATMENT, PSYCHOEDUCATION (03/06/17) INDIV SCRUMMASTER FOR SUBSTANCE ABUSE, COGNITIVE BEHAVIORAL (03/06/17) INDIV PSYCHOTHERAPY FOR SUBSTANCE ABUSE TREATMENT, SUPPORT (06/12/18) INDIV PSYCHOTHERAPY FOR SUBSTANCE ABUSE, COGNITIV BEHAVIORAL (06/12/18) INDIV PSYCHOTHERAPY FOR SUBSTANCE ABUSE, PSYCHOEDUCATION (06/12/18) INDIVID PSYCHOTHERAP NEC (05/23/14) INDIVIDUAL PSYCHOTHERAPY, BEHAVIORAL (11/24/17) INDIVIDUAL PSYCHOTHERAPY, COGNITIVE-BEHAVIORAL (06/12/18) INDIVIDUAL PSYCHOTHERAPY, SUPPORTIVE (06/12/18) INJECT/INFUSE NEC (05/14/14) MEDICATION MANAGEMENT (11/08/17) OTHER GROUP THERAPY (05/23/14) VACCINATION NEC (04/07/15) Family History: States: Unknown Family Hx - Social History Hx Tobacco Use: No Hx Alcohol Use: Yes Hx Substance Use: No - Immunization History Hx Tetanus Toxoid Vaccination: Yes Hx Influenza Vaccination: No Hx Pneumococcal Vaccination: No Review Of Systems Except As Marked, All Systems Reviewed And Found Negative. Constitutional: Negative for: Fever Cardiovascular: Negative for: Chest Pain Respiratory: Negative for: Shortness of Breath Musculoskeletal: Positive for: Arm Pain (left elbow pain + swelling) Skin: Negative for: Lesions, Bruising Neurological: Negative for: Weakness, Numbness, Incoordination Physical Exam - Physical Exam Appears: Well, Non-toxic, No Acute Distress Skin: Normal Color, Warm, No Rash, No Ecchymosis Head: Normacephalic Eye(s): bilateral: PERRL Extremity: Normal ROM (FAROM of Left elbow), Tenderness (Left olecranon), No Deformity, Swelling (moderate soft edema over Left olecranon. No open wound, no erythema, no flactulance.) Extremity: Bilateral: Atraumatic Neurological/Psych: Oriented x3, Normal Speech, Normal Motor, Normal Sensation, Normal Reflexes ED Course And Treatment O2 Sat by Pulse Oximetry: 99 (RA) Pulse Ox Interpretation: Normal - Other Rad Left elbow X-Ray: Interpreted by Me, Viewed By Me Interpretation: (-) acute fx or dislocation Left forearm X-Ray: Interpreted by Me, Viewed By Me Interpretation: (-) acute fx Progress Note: Patient treated with Tylenol and prednisone. X-rays taken of left forearm and elbow. On re-eval, pt is afebrile, hemodynamicaly swtable. Non- toxic. Left elbow: soft edema over olecranon likely c/w elbow bursisitis. FAROM, no neurovascular deficits. NO erythema, no skin changes. Imaging review (-) acute fx or dislocation. Ave wrap applied to Left elbow, sling to left arm. Pt advised. ref. to F/u with Ortho in 2-3 days for re-eavl. return if any new changes. Disposition Counseled Patient/Family Regarding: Studies Performed, Diagnosis, Need For Followup, Rx Given - Disposition Referrals: Benjamin Morales III, MD [Staff Provider] - Disposition: HOME/ ROUTINE Disposition Time: 11:50 Condition: STABLE Additional Instructions: LIght duty to Left arm Lexx wrap to left elbow for 1-2 weeks Take medication as prescribed Follow up with Orthopedist in1 week if no improvement return to Ed if any new changes. Prescriptions: Prednisone [Deltasone] 40 mg PO DAILY #6 tablet Instructions: Olecranon Bursitis (DC) Forms: [employer] (Latvian) - Clinical Impression Clinical Impression: Bursitis - PA / CONTAINER FILLER / Resident Statement MD/DO has reviewed & agrees with the documentation as recorded. - Scribe Statement The provider has reviewed the documentation as recorded by the Scribe (Bambi Mccloud) All medical record entries made by the Scribe were at my direction and personally dictated by me. I have reviewed the chart and agree that the record accurately reflects my personal performance of the history, physical exam, medical decision making, and the department course for this patient. I have also personally directed, reviewed, and agree with the discharge instructions and d isposition.
--- NOTE | 2018-09-09 14:18 | RAD ---
Date of service: 09/09/2018 PROCEDURE: Radiographs of the left elbow. HISTORY: TRAUMA COMPARISON: No prior. FINDINGS: BONES: Normal. No fracture. JOINTS: Normal. No osteoarthritis. SOFT TISSUES: Soft tissue swelling over olecranon most likely reflecting olecranon bursitis. JOINT EFFUSION: None. OTHER FINDINGS: None IMPRESSION: Findings consistent with olecranon bursitis. No osseous abnormality identified.
== END 2018-09-09 12:07 | disposition home or self-care (01) ==
LOC: C.ER 10:48
DX: M70.32 Other bursitis of elbow, left elbow (principal)

== ENCOUNTER 2018-09-18 13:32 | Emergency (ER) | payer OTHER ==
[2018-09-18 13:32] VITALS: BMI 36.0
[2018-09-18 13:41] VITALS: BP 136/93; PULSE 101; RESP 18; TEMP 98.3; O2SAT 99
--- NOTE | 2018-09-18 13:41 | C.PDOC ---
History Of Present Illness 43 year old female presents to the ER with a complaint of left elbow pain. Patient was seen here on 09/09/18 for a fall that occurred a week before. At that time she had an x-ray of the forearm and elbow which were negative. She was diagnosed with bursitis and advised to follow up with Dr. Morales, she called to make an appointment but was unable to get one until 12/23/17. Denies weakness, numbness, or recent trauma. Time Seen by Provider: 09/18/18 13:41 Chief Complaint (Nursing): Upper Extremity Problem/Injury History Per: Patient History/Exam Limitations: no limitations Onset/Duration Of Symptoms: Days Current Symptoms Are (Timing): Still Present Recent travel outside of the [place]: No Past Medical History Reviewed: Historical Data, Nursing Documentation, Vital Signs Vital Signs: Last Vital Signs Temp 98.3 F 09/18/18 13:35 Pulse 101 H 09/18/18 13:35 Resp 18 09/18/18 13:35 BP 136/93 H 09/18/18 13:35 Pulse Ox 99 09/18/18 13:35 - Medical History PMH: Anxiety, Asthma, Bipolar Disorder, COPD, Depression, Fractures, HTN, Hypercholesterolemia, Hyperlipidemia, Schizophrenia Denies: Diabetes, Hepatitis, HIV, Chronic Kidney Disease, Seizures, Sexually Transmitted Disease Surgical History: (x 4) - [facility] Procedures APPLICATION OF SPLINT (06/12/13) DETOXIFICATION SERVICES FOR SUBSTANCE ABUSE TREATMENT (06/12/18) GROUP COMMUNITY ADVOCATE FOR SUBSTANCE ABUSE TREATMENT, PSYCHOEDUCATION (06/12/18) GROUP COMMUNITY ADVOCATE FOR SUBSTANCE ABUSE, COGNITIVE BEHAVIORAL (06/12/18) GROUP PSYCHOTHERAPY (06/12/18) INDIV COMMUNITY ADVOCATE FOR SUBSTANCE ABUSE TREATMENT, PSYCHOEDUCATION (03/06/17) INDIV COMMUNITY ADVOCATE FOR SUBSTANCE ABUSE, COGNITIVE BEHAVIORAL (03/06/17) INDIV PSYCHOTHERAPY FOR SUBSTANCE ABUSE TREATMENT, SUPPORT (06/12/18) INDIV PSYCHOTHERAPY FOR SUBSTANCE ABUSE, COGNITIV BEHAVIORAL (06/12/18) INDIV PSYCHOTHERAPY FOR SUBSTANCE ABUSE, PSYCHOEDUCATION (06/12/18) INDIVID PSYCHOTHERAP NEC (05/23/14) INDIVIDUAL PSYCHOTHERAPY, BEHAVIORAL (11/24/17) INDIVIDUAL PSYCHOTHERAPY, COGNITIVE-BEHAVIORAL (06/12/18) INDIVIDUAL PSYCHOTHERAPY, SUPPORTIVE (06/12/18) INJECT/INFUSE NEC (05/14/14) MEDICATION MANAGEMENT (11/08/17) OTHER GROUP THERAPY (05/23/14) VACCINATION NEC (04/07/15) Family History: States: Unknown Family Hx - Social History Hx Tobacco Use: No Hx Alcohol Use: Yes Hx Substance Use: No - Immunization History Hx Tetanus Toxoid Vaccination: Yes Hx Influenza Vaccination: No Hx Pneumococcal Vaccination: No Review Of Systems Musculoskeletal: Positive for: Other (Left elbow pain and swelling) Neurological: Negative for: Weakness, Numbness Physical Exam - Physical Exam Appears: Non-toxic Skin: Normal Color, Warm, Dry Head: Atraumatic, Normacephalic Eye(s): bilateral: Normal Inspection Extremity: Normal ROM (x4), Capillary Refill (<2 seconds), Other (Swelling over left olecranon. No erythema, warmth, or lesions) Pulses: Left Radial: Normal, Right Radial: Normal Neurological/Psych: Oriented x3, Normal Speech, Normal Motor, Normal Sensation ED Course And Treatment O2 Sat by Pulse Oximetry: 99 (Room air) Pulse Ox Interpretation: Normal Progress Note: Called Dr. Morales's office and was able to move patient's appointment to tomorrow at 1130. Disposition - Disposition Referrals: Benjamin Morales III, MD [Staff Provider] - Disposition: HOME/ ROUTINE Disposition Time: 13:49 Condition: STABLE Additional Instructions: Follow up with tomorrow, September 19, 2018 at 11:30 am, bring your ID card and insurance card. Instructions: Olecranon Bursitis (DC) Forms: [facility] (Haitian) - Clinical Impression Clinical Impression: Olecranon bursitis - PA / ZIPPER MEASURER / Resident Statement MD/DO has reviewed & agrees with the documentation as recorded. - Scribe Statement The provider has reviewed the documentation as recorded by the Scribe Luis F Hou All medical record entries made by the Scribe were at my direction and p ersonally dictated by me. I have reviewed the chart and agree that the record accurately reflects my personal performance of the history, physical exam, medical decision making, and the department course for this patient. I have also personally directed, reviewed, and agree with the discharge instructions and disposition.
== END 2018-09-18 13:55 | disposition home or self-care (01) ==
LOC: C.ER 13:32
DX: M70.22 Olecranon bursitis, left elbow (principal)

== ENCOUNTER 2018-10-06 23:01 | Emergency (ER) | payer OTHER ==
[2018-10-06 23:01] VITALS: BMI 36.0
--- NOTE | 2018-10-06 23:30 | C.PDOC ---
History Of Present Illness Patient brought in via EMS after being found intoxicated in public. Denies any physical complaints at this time. Time Seen by Provider: 10/06/18 23:30 Chief Complaint (Nursing): Substance Abuse History Per: Patient, EMS History/Exam Limitations: no limitations Onset/Duration Of Symptoms: Hrs Current Symptoms Are (Timing): Still Present Suicide/Self Injury Attempted (Context): None Modifying Factor(s): Alcohol Severity: None Pain Scale Rating Of: 0 Associated Symptoms: denies: Depression, Suicidal Thoughts Involuntary Hold By: None Recent travel outside of the [place]: No Past Medical History Reviewed: Historical Data, Nursing Documentation, Vital Signs Vital Signs: Last Vital Signs Temp 97.5 F L 10/06/18 23:17 Pulse 112 H 10/06/18 23:17 Resp 16 10/06/18 23:17 BP 95/55 L 10/06/18 23:17 Pulse Ox 95 10/06/18 23:17 - Medical History PMH: Anxiety, Asthma, Bipolar Disorder, COPD, Depression, Fractures, HTN, Hypercholesterolemia, Hyperlipidemia, Schizophrenia Denies: Diabetes, Hepatitis, HIV, Chronic Kidney Disease, Seizures, Sexually Transmitted Disease Surgical History: (x 4) - [facility] Procedures APPLICATION OF SPLINT (06/12/13) DETOXIFICATION SERVICES FOR SUBSTANCE ABUSE TREATMENT (06/12/18) GROUP CEO AND CO FOUNDER FOR SUBSTANCE ABUSE TREATMENT, PSYCHOEDUCATION (06/12/18) GROUP CEO AND CO FOUNDER FOR SUBSTANCE ABUSE, COGNITIVE BEHAVIORAL (06/12/18) GROUP PSYCHOTHERAPY (06/12/18) INDIV CEO AND CO FOUNDER FOR SUBSTANCE ABUSE TREATMENT, PSYCHOEDUCATION (03/06/17) INDIV CEO AND CO FOUNDER FOR SUBSTANCE ABUSE, COGNITIVE BEHAVIORAL (03/06/17) INDIV PSYCHOTHERAPY FOR SUBSTANCE ABUSE TREATMENT, SUPPORT (06/12/18) INDIV PSYCHOTHERAPY FOR SUBSTANCE ABUSE, COGNITIV BEHAVIORAL (06/12/18) INDIV PSYCHOTHERAPY FOR SUBSTANCE ABUSE, PSYCHOEDUCATION (06/12/18) INDIVID PSYCHOTHERAP NEC (05/23/14) INDIVIDUAL PSYCHOTHERAPY, BEHAVIORAL (11/24/17) INDIVIDUAL PSYCHOTHERAPY, COGNITIVE-BEHAVIORAL (06/12/18) INDIVIDUAL PSYCHOTHERAPY, SUPPORTIVE (06/12/18) INJECT/INFUSE NEC (05/14/14) MEDICATION MANAGEMENT (11/08/17) OTHER GROUP THERAPY (05/23/14) VACCINATION NEC (05/14/15) Family History: States: No Known Family Hx - Social History Hx Tobacco Use: No Hx Alcohol Use: Yes Hx Substance Use: No - Immunization History Hx Tetanus Toxoid Vaccination: Yes Hx Influenza Vaccination: No Hx Pneumococcal Vaccination: No Review Of Systems Constitutional: Negative for: Fever, Chills Cardiovascular: Negative for: Chest Pain, Palpitations Respiratory: Negative for: Cough, Shortness of Breath Gastrointestinal: Negative for: Nausea, Vomiting Neurological: Negative for: Weakness, Numbness Physical Exam - Physical Exam Appears: Non-toxic, Other (ETOH on breath, no sign of injury) Skin: Warm, Dry Head: Normacephalic Oral Mucosa: Moist Chest: Symmetrical, No Tenderness Cardiovascular: Rhythm Regular Respiratory: No Rales, No Rhonchi, No Wheezing Gastrointestinal/Abdominal: Soft, No Tenderness Neurological/Psych: Oriented x3 ED Course And Treatment O2 Sat by Pulse Oximetry: 95 (Room air) Pulse Ox Interpretation: Normal Progress Note: 4:20 AM Pt clinically sober. Wants to go home Reevaluation Time: 04:21 Reassessment Condition: Improved Disposition Counseled Patient/Family Regarding: Studies Performed, Diagnosis, Need For Fol lowup - Disposition Referrals: [facility] [Outside] Disposition: HOME/ ROUTINE Disposition Time: 23:30 Condition: FAIR Instructions: Alcohol Abuse and Alcoholism (DC) Forms: [facility] (Moldovan) - Clinical Impression Clinical Impression: Acute alcohol intoxication - Scribe Statement The provider has reviewed the documentation as recorded by the Scribe Luis F Hou All medical record entries made by the Scribe were at my direction and personally dictated by me. I have reviewed the chart and agree that the record accurately reflects my personal performance of the history, physical exam, medical decision making, and the department course for this patient. I have also personally directed, reviewed, and agree with the discharge instructions and disposition.
[2018-10-06 23:57] VITALS: RESP 20
[2018-10-07 04:31] VITALS: BP 120/64; PULSE 84; TEMP 97.4; O2SAT 99
== END 2018-10-07 05:22 | disposition home or self-care (01) ==
LOC: C.ER 23:01
DX: F10.129 Alcohol abuse with intoxication, unspecified (principal); E78.00 Pure hypercholesterolemia, unspecified; F20.9 Schizophrenia, unspecified; I10 Essential (primary) hypertension

== ENCOUNTER 2018-11-11 00:30 | Emergency (ER) | payer OTHER ==
[2018-11-11 00:30] VITALS: BMI 36.0
--- NOTE | 2018-11-11 00:48 | C.PDOC ---
History Of Present Illness 43 year old female is brought to the ED by EMS for alcohol intoxication. Patient was drinking at home, screaming and yelling. Patient's neighbor called the Police and patient was brought to the ED. Patient states she has not been able to sleep for the past couple of days. Patient denies SI/HI, hallucinations, CP, SOB, injury, fall, trauma. Time Seen by Provider: 11/11/18 00:47 Chief Complaint (Nursing): Psychiatric Evaluation History Per: Patient, EMS History/Exam Limitations: intoxication Onset/Duration Of Symptoms: Hrs Current Symptoms Are (Timing): Still Present Suicide/Self Injury Attempted (Context): None Modifying Factor(s): Alcohol Associated Symptoms: Anger. denies: Depression, Suicidal Thoughts, Suicidal Plan Recent travel outside of the [place]: No Additional History Per: Patient, EMS Past Medical History Reviewed: Historical Data, Nursing Documentation, Vital Signs Vital Signs: Last Vital Signs Temp 97.8 F 11/11/18 00:37 Pulse 114 H 11/11/18 00:37 Resp 20 11/11/18 00:37 BP 113/86 11/11/18 00:37 Pulse Ox 100 11/11/18 00:37 - Medical History PMH: Anxiety, Asthma, Bipolar Disorder, COPD, Depression, Fractures, HTN, Hypercholesterolemia, Hyperlipidemia, Schizophrenia Denies: Diabetes, Hepatitis, HIV, Chronic Kidney Disease, Seizures, Sexually Transmitted Disease Surgical History: (x 4) - [facility] Procedures APPLICATION OF SPLINT (06/12/13) DETOXIFICATION SERVICES FOR SUBSTANCE ABUSE TREATMENT (06/12/18) GROUP OPEN HEARTH DOOR LINER FOR SUBSTANCE ABUSE TREATMENT, PSYCHOEDUCATION (06/12/18) GROUP OPEN HEARTH DOOR LINER FOR SUBSTANCE ABUSE, COGNITIVE BEHAVIORAL (06/12/18) GROUP PSYCHOTHERAPY (06/12/18) INDIV OPEN HEARTH DOOR LINER FOR SUBSTANCE ABUSE TREATMENT, PSYCHOEDUCATION (03/06/17) INDIV OPEN HEARTH DOOR LINER FOR SUBSTANCE ABUSE, COGNITIVE BEHAVIORAL (03/06/17) INDIV PSYCHOTHERAPY FOR SUBSTANCE ABUSE TREATMENT, SUPPORT (06/12/18) INDIV PSYCHOTHERAPY FOR SUBSTANCE ABUSE, COGNITIV BEHAVIORAL (06/12/18) INDIV PSYCHOTHERAPY FOR SUBSTANCE ABUSE, PSYCHOEDUCATION (06/12/18) INDIVID PSYCHOTHERAP NEC (05/23/14) INDIVIDUAL PSYCHOTHERAPY, BEHAVIORAL (11/24/17) INDIVIDUAL PSYCHOTHERAPY, COGNITIVE-BEHAVIORAL (06/12/18) INDIVIDUAL PSYCHOTHERAPY, SUPPORTIVE (06/12/18) INJECT/INFUSE NEC (05/14/14) MEDICATION MANAGEMENT (11/08/17) OTHER GROUP THERAPY (05/23/14) VACCINATION NEC (04/07/15) Family History: States: Unknown Family Hx - Social History Hx Tobacco Use: No Hx Alcohol Use: Yes Hx Substance Use: No - Immunization History Hx Tetanus Toxoid Vaccination: Yes Hx Influenza Vaccination: No Hx Pneumococcal Vaccination: No Review Of Systems Constitutional: Negative for: Fever, Chills Cardiovascular: Negative for: Chest Pain Respiratory: Negative for: Shortness of Breath Gastrointestinal: Negative for: Nausea, Vomiting, Abdominal Pain Skin: Negative for: Rash Neurological: Negative for: Weakness, Numbness Psych: Negative for: Depression, Suicidal ideation Physical Exam - Physical Exam Appears: Non-toxic, No Acute Distress, Other (intoxicated) Skin: Warm, Dry Head: Normacephalic Eye(s): bilateral: Normal Inspection Neck: Supple Chest: Symmetrical Cardiovascular: Rhythm Regular Respiratory: No Rales, No Rhonchi, No Wheezing Gastrointestinal/Abdominal: Soft, No Tenderness, No Guarding, No Rebound Extremity: Bilateral: Atraumatic, Normal Color And Temperature, Normal ROM Neurological/Psych: Oriented x3, Normal Speech, Normal Cognition Gait: Steady ED Course And Treatment - Laboratory Results Result Diagrams: 11/11/18 01:58 11/11/18 01:58 O2 Sat by Pulse Oximetry: 100 (ON RA) Pulse Ox Interpretation: Normal Disposition Counseled Patient/Family Regarding: Studies Performed, Diagnosis, Need For Followup - Disposition Referrals: [facility] [Outside] Disposition Time: 00:48 Condition: FAIR Instructions: Alcohol Abuse and Alcoholism (DC) Forms: [employer] (Sierra Leonean) - Clinical Impression Clinical Impression: Alcohol intoxication - Scribe Statement The provider has reviewed the documentation as recorded by the Scribe Charlie Lopez All medical record entries made by the Scribe were at my direction and personally dictated by me. I have reviewed the chart and agree that the record accurately reflects my personal performance of the history, physical exam, medical decision making, and the department course for this patient. I have also personally directed, reviewed, and agree with the discharge instructions and disposition. Physician Patient Turnover Patient Signed Over To: Trang Dotson Handoff Comments: pending sobriety, crisis eval and disposition
[2018-11-11] MEDS ORDERED: Midazolam 2 MG/2 ML VIAL IVP STA (01:24)
[2018-11-11] MEDS ORDERED: Midazolam 2 MG/2 ML VIAL ONE (01:38)
[2018-11-11] MEDS ORDERED: Midazolam 2 MG/2 ML VIAL IM STA (01:57)
[2018-11-11 02:02] LABS: BASO % 0.5 % (0.0-2.0); EOS # 0.1 K/uL (0.0-0.7); EOS % 0.9 % (0.0-4.0); HEMOGLOBIN 11.5 g/dL (11.0-16.0); LYMPH # 3.2 K/uL (1.0-4.3); LYMPH % 47.6 % (20.0-40.0); MEAN CELL VOLUME 86.1 fL (81.0-99.0); MEAN CORPUSCULAR HEMOGLOBIN 27.9 pg (27.0-31.0); MEAN CORPUSCULAR HGB CONC 32.4 g/dL (33.0-37.0); MEAN PLATELET VOLUME 7.2 fL (7.2-11.7); MONO # 0.5 K/uL (0.0-0.8); MONO % 7.2 % (0.0-10.0); NEUT # 2.9 K/uL (1.8-7.0); NEUT % 43.8 % (50.0-75.0); NRBC % 0.1 % (0.0-2.0); RBC 4.13 Mil/uL (3.80-5.20); RED CELL DISTRIBUTION WIDTH 14.9 % (11.5-14.5); WHITE BLOOD COUNT 6.7 K/uL (4.8-10.8)
[2018-11-11 02:04] LABS: URINE BILIRUBIN NEGATIVE (NEGATIVE); URINE CLARITY Clear (Clear); URINE COLOR Colorless (YELLOW); URINE GLUCOSE (UA) NORMAL (Normal); URINE LEUKOCYTE ESTERASE NEG Leu/uL (Negative); URINE PROTEIN NEGATIVE (NEGATIVE); URINE UROBILINOGEN NORMAL mg/dL (0.2-1.0)
[2018-11-11 02:07] LABS: URINE BLOOD NEGATIVE (NEGATIVE)
[2018-11-11 02:20] LABS: BARBITURATES, UR NEGATIVE (NEGATIVE); BENZODIAZEPINES, UR NEGATIVE (NEGATIVE); OPIATES, UR NEGATIVE (NEGATIVE); PHENCYCLIDINE, UR NEGATIVE (NEGATIVE)
[2018-11-11 02:23] LABS: ALB/GLOB RATIO 1.4 (1.0-2.1); ALBUMIN 4.3 g/dL (3.5-5.0); ALT/SGPT 36 U/L (9-52); AST/SGOT 40 U/L (14-36); BLOOD UREA NITROGEN 9 mg/dL (7-17); GFR NON-AFRICAN AMERICAN > 60
[2018-11-11 07:40] VITALS: BP 112/63; PULSE 107; RESP 18; TEMP 98; O2SAT 96
--- NOTE | 2018-11-13 12:23 | CARD ---
APPROVED REPORT Date of service: 11/11/2018 EKG Measurement Heart [id number] CT [id number] <Conclusion> Sinus tachycardia Cannot rule out Anterior infarct, age undetermined Abnormal ECG
== END 2018-11-11 09:12 | disposition home or self-care (01) ==
LOC: C.ER 00:30
DX: F10.129 Alcohol abuse with intoxication, unspecified (principal); Y90.8 Blood alcohol level of 240 mg/100 ml or more; I10 Essential (primary) hypertension; E78.00 Pure hypercholesterolemia, unspecified; F20.9 Schizophrenia, unspecified; F17.210 Nicotine dependence, cigarettes, uncomplicated
CPT/HCPCS: 80053; 80320; 80324; 80345; 80346; 80349; 80353; 80358; 80361; 81001; 83735; 83992; 84100; 85025; 93005; 96372; 99285; J2250; J3486

== ENCOUNTER 2018-12-20 22:17 | Emergency (ER) | payer MEDICAID, OTHER ==
[2018-12-20 22:17] VITALS: BMI 36.0
--- NOTE | 2018-12-20 23:03 | C.PDOC ---
History Of Present Illness 43 yr old F w/ hx of schizophrenia, etoh abuse, anxiety, depression presents BIBA for etoh intoxication, altercation at home. Pt denies any altercation at home and denies any SI, HI or hallucination. She notes drinking alcohol however and falling once onto her head. She denies any headache, nausea, vomiting. She denies being on any blood thinners. No other complaints. Time Seen by Provider: 12/20/18 22:27 Chief Complaint (Nursing): Substance Abuse Past Medical History Vital Signs: Last Vital Signs Temp 97.9 F 12/20/18 22:30 Pulse 106 H 12/20/18 22:30 Resp 20 12/20/18 22:30 BP 119/72 12/20/18 22:30 Pulse Ox 95 12/20/18 22:30 - Medical History PMH: Anxiety, Asthma, Bipolar Disorder, COPD, Depression, Fractures, HTN, Hypercholesterolemia, Hyperlipidemia, Schizophrenia Denies: Diabetes, Hepatitis, HIV, Chronic Kidney Disease, Seizures, Sexually Transmitted Disease Surgical History: (x 4) - [facility] Procedures APPLICATION OF SPLINT (06/12/13) DETOXIFICATION SERVICES FOR SUBSTANCE ABUSE TREATMENT (06/12/18) GROUP WEB ANALYTICS DEVELOPER FOR SUBSTANCE ABUSE TREATMENT, PSYCHOEDUCATION (06/12/18) GROUP WEB ANALYTICS DEVELOPER FOR SUBSTANCE ABUSE, COGNITIVE BEHAVIORAL (06/12/18) GROUP PSYCHOTHERAPY (06/12/18) INDIV WEB ANALYTICS DEVELOPER FOR SUBSTANCE ABUSE TREATMENT, PSYCHOEDUCATION (03/06/17) INDIV WEB ANALYTICS DEVELOPER FOR SUBSTANCE ABUSE, COGNITIVE BEHAVIORAL (03/06/17) INDIV PSYCHOTHERAPY FOR SUBSTANCE ABUSE TREATMENT, SUPPORT (06/12/18) INDIV PSYCHOTHERAPY FOR SUBSTANCE ABUSE, COGNITIV BEHAVIORAL (06/12/18) INDIV PSYCHOTHERAPY FOR SUBSTANCE ABUSE, PSYCHOEDUCATION (06/12/18) INDIVID PSYCHOTHERAP NEC (05/23/14) INDIVIDUAL PSYCHOTHERAPY, BEHAVIORAL (11/24/17) INDIVIDUAL PSYCHOTHERAPY, COGNITIVE-BEHAVIORAL (06/12/18) INDIVIDUAL PSYCHOTHERAPY, SUPPORTIVE (06/12/18) INJECT/INFUSE NEC (05/14/14) MEDICATION MANAGEMENT (11/08/17) OTHER GROUP THERAPY (05/23/14) VACCINATION NEC (04/07/15) Family History: States: Unknown Family Hx - Social History Hx Tobacco Use: No Hx Alcohol Use: Yes Hx Substance Use: No - Immunization History Hx Tetanus Toxoid Vaccination: Yes Hx Influenza Vaccination: No Hx Pneumococcal Vaccination: No Review Of Systems Constitutional: Negative for: Fever, Chills Eyes: Negative for: Pain, Vision Change ENT: Negative for: Ear Pain, Ear Discharge, Nose Pain, Nose Congestion, Mouth Pain Cardiovascular: Negative for: Chest Pain, Palpitations, Edema Respiratory: Negative for: Cough, Shortness of Breath Gastrointestinal: Negative for: Nausea, Vomiting, Abdominal Pain, Constipation, Melena Genitourinary: Negative for: Dysuria, Frequency, Hematuria Musculoskeletal: Negative for: Neck Pain, Shoulder Pain, Back Pain Neurological: Negative for: Weakness, Numbness Psych: Negative for: Anxiety, Depression, Suicidal ideation Physical Exam - Physical Exam Appears: Well, Non-toxic, No Acute Distress, Other (etoh odor. appears moderately inebriated) Skin: Normal Color, Warm Head: Atraumatic, Normacephalic, No Tenderness, No Swelling, No Abrasion, No Laceration Eye(s): bilateral: Normal Inspection, PERRL, EOMI Ear(s): Bilateral: Normal Nose: Normal, No Flaring, No Discharge, No Epistaxis, No Septal Hematoma Oral Mucosa: Moist Tongue: Normal Appearing Neck: Normal, Normal ROM, Supple Chest: Symmetrical Cardiovascular: Rhythm Regular Respiratory: Normal Breath Sounds Gastrointestinal/Abdominal: Normal Exam Back: Normal Inspection, No CVA Tenderness, No Vertebral Tenderness Extremity: Normal ROM, No Tenderness Extremity: Bilateral: Atraumatic, Hips Non-Tender, Normal ROM Neurological/Psych: Oriented x3, Normal Speech, Normal Cognition Gait: Other (inebriated- unsteady) ED Course And Treatment - Laboratory Results Result Diagrams: 12/21/18 00:07 12/21/18 00:07 O2 Sat by Pulse Oximetry: 95 (Room air) - CT Scan/US CT Head Other Rad Studies (CT/US): Read By Radiologist, Radiology Report Reviewed CT/US Interpretation: CT SCAN OF THE BRAIN WITHOUT IV CONTRAST. CLINICAL INDICATION: Fall. COMPARISON:07/21/2016. TECHNIQUE: Axial and reformatted sagittal and coronal images of the brain obtained without IV contrast administration. Normal size of the ventricles and extra-axial spaces for the patient's age. Normal white matter tracts of the supratentorial brain. Normal basal ganglia and thalami. Normal brainstem. Normal cerebellum. There is no d emonstrated extra-axial, intraparenchymal, or intraventricular hemorrhage. There are no findings of an acute ischemic infarction. Normal calvarium. There is no demonstrated fracture. Normal soft tissue structures. Normal visualized paranasal sinuses. IMPRESSION: Normal unenhanced CT scan of the brain. Medical Decision Making Medical Decision Makin yr old F w/ hx of etoh intox, schizophrenia, depression p/w etoh intoxcation. In NAD. Notes drinking etoh and falling but w/ out visible signs of trauma. Will seek CT and labs. 0226 Ct unremarkable labs w/ +etoh, clears @ approx ~5am pending sobreity Pt noted to keep wanting to stand up but w/ unsteady inebraited gait. Haldol given for pts safety. 0430 Pt denies any SI or HI. No hallucination. No pain. pt in NAd, ambulating well with steady gait. No signs of withdrawal on exam. Clear for d/c home with return indications and f/u Disposition - Disposition Referrals: [facility] [Outside] [facility] [Outside] [facility] [Outside] Disposition Time: 04:30 Condition: GOOD Additional Instructions: MIL MORRIS, thank you for letting us take care of you today. Your provider was Valdo Canales and you were treated for ETOH. The emergency medical care you received today was directed at your acute symptoms. If you were prescribed any medication, please fill it and take as directed. It may take several days for your symptoms to resolve. Return to the Emergency Department if your symptoms worsen, do not improve, or if you have any other problems. Please contact your doctor or call one of the physicians/clinics you have been referred to that are listed on the Patient Visit Information form that is inc luded in your discharge packet. Bring any paperwork you were given at discharge with you along with any medications you are taking to your follow up visit. Our treatment cannot replace ongoing medical care by a primary care provider outside of the emergency department. [facility] your care today. If you had an X-Ray or CT scan: A Radiologist will review the ED reading if any change in treatment is needed we will contact you. If you had a blood, urine, or wound culture: It will take several days for the results, if any change in treatment is needed we will contact you. If you had an STI test: It will take 48 hours for the results. Please call after 1 week if you have not heard back. Instructions: Alcohol Use - When Is Drinking a Problem?, Effects of Alcohol on Your Health Forms: [facility] (Tajik) - Clinical Impression Clinical Impression: Alcohol intoxication
[2018-12-21 00:12] LABS: BASO # 0.1 K/uL (0.0-0.2); BASO % 0.8 % (0.0-2.0); EOS # 0.1 K/uL (0.0-0.7); EOS % 0.8 % (0.0-4.0); HEMOGLOBIN 12.3 g/dL (11.0-16.0); LYMPH # 4.1 K/uL (1.0-4.3); LYMPH % 40.9 % (20.0-40.0); MEAN CELL VOLUME 86.3 fL (81.0-99.0); MEAN CORPUSCULAR HEMOGLOBIN 28.7 pg (27.0-31.0); MEAN CORPUSCULAR HGB CONC 33.2 g/dL (33.0-37.0); MEAN PLATELET VOLUME 7.7 fL (7.2-11.7); MONO # 0.4 K/uL (0.0-0.8); MONO % 3.7 % (0.0-10.0); NEUT # 5.4 K/uL (1.8-7.0); NEUT % 53.8 % (50.0-75.0); NRBC % 0.1 % (0.0-2.0); RBC 4.28 Mil/uL (3.80-5.20); RED CELL DISTRIBUTION WIDTH 15.2 % (11.5-14.5)
[2018-12-21 00:26] LABS: ACETAMINOPHEN < 10.0 ug/mL (10.0-30.0); SALICYLATE < 1.0 mg/dL 1
[2018-12-21 00:27] LABS: ALB/GLOB RATIO 1.3 (1.0-2.1); ALBUMIN 4.7 g/dL (3.5-5.0); BLOOD UREA NITROGEN 15 mg/dL (7-17); CALCIUM 8.8 mg/dl (8.6-10.4); GFR NON-AFRICAN AMERICAN > 60
[2018-12-21 00:33] LABS: ALT/SGPT 17 U/L (9-52); AST/SGOT 31 U/L (14-36)
[2018-12-21 04:22] VITALS: BP 134/73; TEMP 98.7; O2SAT 96
[2018-12-21 04:24] VITALS: PULSE 109; RESP 17
--- NOTE | 2018-12-21 07:43 | CT ---
Date of service: 12/21/2018 PROCEDURE: CT HEAD WITHOUT CONTRAST. HISTORY: fall COMPARISON: 07/21/2016 TECHNIQUE: Axial computed tomography images were obtained through the head/brain without intravenous contrast. Radiation dose: Total exam DLP = 1471.03 mGy-cm. This CT exam was performed using one or more of the following dose reduction techniques: Automated exposure control, adjustment of the mA and/or kV according to patient size, and/or use of iterative reconstruction technique. FINDINGS: HEMORRHAGE: No intracranial hemorrhage. BRAIN: No mass effect or edema. No atrophy or chronic microvascular ischemic changes. VENTRICLES: Unremarkable. No hydrocephalus. CALVARIUM: Nasal bone deformity. PARANASAL SINUSES: Unremarkable as visualized. No significant inflammatory changes. MASTOID AIR CELLS: Unremarkable as visualized. No inflammatory changes. OTHER FINDINGS: None. IMPRESSION: No acute intracranial abnormality. Nasal bone deformity. If symptoms persists, consider correlation with MRI. A preliminary report was generated at 12:50 a.m. 12/21/[address] Jerad Vincent from [employer].
== END 2018-12-21 05:02 | disposition home or self-care (01) ==
LOC: C.ER 22:17
DX: F10.129 Alcohol abuse with intoxication, unspecified (principal); Y90.8 Blood alcohol level of 240 mg/100 ml or more
CPT/HCPCS: 70450; 80053; 80320; 80329; 82948; 83735; 84100; 84702; 85025; 96372; 99285; J1630

== ENCOUNTER 2018-12-23 00:57 | Inpatient (IN) | payer OTHER ==
[2018-12-23 00:58] VITALS: BMI 36.0
--- NOTE | 2018-12-23 01:18 | C.PDOC ---
History Of Present Illness 43 year old female is brought to ED by EMS for evaluation of questionable overdose. Patient reports she was drinking today. Patient denies HI, hallucinations, injury, fall, trauma. Time Seen by Provider: 12/23/18 01:18 Chief Complaint (Nursing): Substance Abuse History Per: Patient History/Exam Limitations: no limitations Onset/Duration Of Symptoms: Hrs Current Symptoms Are (Timing): Still Present Suicide/Self Injury Attempted (Context): Ingestion (questionable ) Modifying Factor(s): Alcohol Associated Symptoms: Depression, Suicidal Thoughts, Suicidal Plan Recent travel outside of the [place]: No Additional History Per: Patient Past Medical History Reviewed: Historical Data, Nursing Documentation, Vital Signs Vital Signs: Last Vital Signs Temp 98.7 F 12/23/18 01:12 Pulse 134 H 12/23/18 01:12 Resp 16 12/23/18 01:12 BP 135/95 H 12/23/18 01:12 Pulse Ox 98 12/23/18 01:12 - Medical History PMH: Anxiety, Asthma, Bipolar Disorder, COPD, Depression, Fractures, HTN, Hypercholesterolemia, Hyperlipidemia, Schizophrenia Denies: Diabetes, Hepatitis, HIV, Chronic Kidney Disease, Seizures, Sexually Transmitted Disease Surgical History: (x 4) - [facility] Procedures APPLICATION OF SPLINT (06/12/13) DETOXIFICATION SERVICES FOR SUBSTANCE ABUSE TREATMENT (06/12/18) GROUP KNUCKLER FOR SUBSTANCE ABUSE TREATMENT, PSYCHOEDUCATION (06/12/18) GROUP KNUCKLER FOR SUBSTANCE ABUSE, COGNITIVE BEHAVIORAL (06/12/18) GROUP PSYCHOTHERAPY (06/12/18) INDIV KNUCKLER FOR SUBSTANCE ABUSE TREATMENT, PSYCHOEDUCATION (03/06/17) INDIV KNUCKLER FOR SUBSTANCE ABUSE, COGNITIVE BEHAVIORAL (03/06/17) INDIV PSYCHOTHERAPY FOR SUBSTANCE ABUSE TREATMENT, SUPPORT (06/12/18) INDIV PSYCHOTHERAPY FOR SUBSTANCE ABUSE, COGNITIV BEHAVIORAL (06/12/18) INDIV PSYCHOTHERAPY FOR SUBSTANCE ABUSE, PSYCHOEDUCATION (06/12/18) INDIVID PSYCHOTHERAP NEC (05/23/14) INDIVIDUAL PSYCHOTHERAPY, BEHAVIORAL (11/24/17) INDIVIDUAL PSYCHOTHERAPY, COGNITIVE-BEHAVIORAL (06/12/18) INDIVIDUAL PSYCHOTHERAPY, SUPPORTIVE (06/12/18) INJECT/INFUSE NEC (05/14/14) MEDICATION MANAGEMENT (11/08/17) OTHER GROUP THERAPY (05/23/14) VACCINATION NEC (04/07/15) Family History: States: Unknown Family Hx - Social History Hx Tobacco Use: No Hx Alcohol Use: Yes Hx Substance Use: No - Immunization History Hx Tetanus Toxoid Vaccination: Yes Hx Influenza Vaccination: No Hx Pneumococcal Vaccination: No Review Of Systems Constitutional: Negative for: Fever, Chills Cardiovascular: Negative for: Chest Pain Respiratory: Negative for: Shortness of Breath Gastrointestinal: Negative for: Nausea, Vomiting, Abdominal Pain Skin: Negative for: Rash Psych: Positive for: Depression, Suicidal ideation Physical Exam - Physical Exam Appears: Non-toxic, No Acute Distress, Other (intoxicated) Skin: Warm, Dry Head: Normacephalic Eye(s): bilateral: Normal Inspection Neck: Supple Chest: Symmetrical Cardiovascular: Rhythm Regular Respiratory: No Rales, No Rhonchi, No Wheezing Gastrointestinal/Abdominal: Soft, No Tenderness, No Guarding, No Rebound Extremity: Bilateral: Atraumatic, Normal Color And Temperature, Normal ROM Neurological/Psych: Oriented x3, Normal Speech, Normal Cognition Gait: Steady ED Course And Treatment - Laboratory Results Result Diagrams: 12/23/18 02:06 12/23/18 02:06 O2 Sat by Pulse Oximetry: 98 (ON RA) Pulse Ox Interpretation: Normal Progress Note: Plan: - EKG. - Labs. - Geodon 20 mg IM. - Versed 1 mg IM. - Crisis eval. - UA Disposition Counseled Patient/Family Regarding: Studies Performed, Diagnosis - Disposition Disposition Time: :18 Condition: FAIR Forms: [facility] ([place] Islander) - Clinical Impression Clinical Impression: Acute alcohol intoxication, Major depression - Scribe Statement The provider has reviewed the documentation as recorded by the Scribe Charlie Lopez All medical record entries made by the Scribe were at my direction and personally dictated by me. I have reviewed the chart and agree that the record accurately reflects my personal performance of the history, physical exam, me dical decision making, and the department course for this patient. I have also personally directed, reviewed, and agree with the discharge instructions and disposition. Physician Patient Turnover Patient Signed Over To: Ginger Angulo Handoff Comments: pending crisis eval
[2018-12-23 02:11] LABS: BASO # 0.1 K/uL (0.0-0.2); BASO % 0.8 % (0.0-2.0); EOS # 0.1 K/uL (0.0-0.7); EOS % 1.1 % (0.0-4.0); HEMOGLOBIN 11.8 g/dL (11.0-16.0); LYMPH # 2.7 K/uL (1.0-4.3); LYMPH % 32.5 % (20.0-40.0); MEAN CELL VOLUME 85.6 fL (81.0-99.0); MEAN CORPUSCULAR HEMOGLOBIN 27.9 pg (27.0-31.0); MEAN CORPUSCULAR HGB CONC 32.6 g/dL (33.0-37.0); MEAN PLATELET VOLUME 7.5 fL (7.2-11.7); MONO # 0.5 K/uL (0.0-0.8); MONO % 6.4 % (0.0-10.0); NEUT # 4.9 K/uL (1.8-7.0); NEUT % 59.2 % (50.0-75.0); NRBC % 0.1 % (0.0-2.0); RBC 4.24 Mil/uL (3.80-5.20); RED CELL DISTRIBUTION WIDTH 14.5 % (11.5-14.5); WHITE BLOOD COUNT 8.2 K/uL (4.8-10.8)
[2018-12-23 02:37] LABS: ACETAMINOPHEN < 10.0 ug/mL (10.0-30.0); SALICYLATE < 1.0 mg/dL 1
[2018-12-23] MEDS ORDERED: Midazolam 5 MG/5 ML VIAL IM STA (02:51)
[2018-12-23 02:53] LABS: ALB/GLOB RATIO 1.3 (1.0-2.1); ALBUMIN 4.6 g/dL (3.5-5.0); ALT/SGPT 21 U/L (9-52); AST/SGOT 35 U/L (14-36); BLOOD UREA NITROGEN 10 mg/dL (7-17); CALCIUM 9.1 mg/dl (8.6-10.4); GFR NON-AFRICAN AMERICAN > 60
[2018-12-23] MEDS ORDERED: Midazolam 2 MG/2 ML VIAL ONE (03:06)
[2018-12-23 04:37] LABS: SQUAMOUS EPITHIAL 1 /hpf (0-5); URINE BILIRUBIN NEGATIVE (NEGATIVE); URINE BLOOD 1+ (NEGATIVE); URINE CLARITY Clear (Clear); URINE COLOR Yellow (YELLOW); URINE GLUCOSE (UA) NORMAL (Normal); URINE LEUKOCYTE ESTERASE NEG Leu/uL (Negative); URINE PROTEIN NEGATIVE (NEGATIVE); URINE UROBILINOGEN NORMAL mg/dL (0.2-1.0)
[2018-12-23 04:38] LABS: HCG,QUALITATIVE URINE NEGATIVE (NEGATIVE)
[2018-12-23 05:03] LABS: BARBITURATES, UR NEGATIVE (NEGATIVE); OPIATES, UR NEGATIVE (NEGATIVE); PHENCYCLIDINE, UR NEGATIVE (NEGATIVE)
[2018-12-23 05:05] LABS: BENZODIAZEPINES, UR POSITIVE (NEGATIVE)
[2018-12-23 09:17] VITALS: O2SAT 96
--- NOTE | 2018-12-23 10:23 | PCM.PSYCH ---
Initial Psychiatric Evaluation - Initial Psychiatric Evaluation Type of Admission: Voluntary Legal Status: Capacity Chief Complaint (in patient's own words): "I was depressed" History of Present Illness and Precipitating Events: Pt is a 43 yo female, and was admitted to the hospital for depression and suicidal ideation, after an impulsive attempt with Ambien OD. Pt is currently single, lives alone, has 7 children between the ages of 22 and 10 who live with their father, and collects SSI. Two of her children are incarcerated. Pt claims she had been drinking and had a fight with her mother over it and impulsively attempted suicide. No notes written. Her brother found her and called 911. She did not drink the whole med bottle. She is now happy to be alive. No medical/ICU tx needed. She had had similar attempts after fights with boy friend or children, in the past. She admits to having been depressed again for months. She admits to missing her outpt appointment and not following up. Associated symptoms include decreased energy, decreased appetite, poor sleep, anhedonia, anxiety and racing thoughts. Pt denies visual hallucinations, auditory hallucinations, paranoia, flight of ideas, and homicidal ideation. Pt admits to a long history of alcohol use. Drinks five 24 oz. cans of beer on the weekends. States she relapsed few weeks ago. Denies tremors, abdominal pain, nausea, vomiting, diaphoresis, chills, agitation. Denies history of seizures. Reports history of one prior detox and one rehab. Admits to smoking a half a pack of cigarettes approximately 2 days per week (only when she drinks) for 20 y ears. Denies all other drug use. Psych Hx: Bipolar disorder, alcohol use disorder History of multiple inpatient psych admissions, last admission was at [facility] 4 months ago for depression. States she did not follow up with [facility] following discharge because she moved in with her boyfriend in [place] and then missed an intake. Pt has a history of prior suicide attempt by overdosing and hanging. Family Psych Hx: mother and sister- bipolar disorder; sister-alcohol use disorder; 2 bothers- opioid use disorder PMHx: HTN, Asthma Past Psychiatric History - Past Psychiatric History Previous Treatment History: Inpatient Pertinent Medical Hx (Current Medical&Sleep Prob, Allergies): Allergies Allergy/AdvReac Type Severity Reaction Status Date / Time Penicillins Allergy RASH Verified 12/23/18 01:07 Albuterol/Ipratropium [Duoneb 3 mg/0.5 mg (3 ml) UD] 3 ml INH RQ6 PRN neb 11/24/17 DULoxetine [Cymbalta] 30 mg PO DAILY 30 Days #30 ecc 11/29/17 QUEtiapine [SEROquel] 200 mg PO HS 30 Days #30 tab 11/29/17 amLODIPine [Norvasc] 5 mg PO DAILY tab 11/29/17 Albuterol Sulfate [Ventolin Hfa] 1 puff IH BID 06/03/18 Escitalopram [Lexapro] 10 mg PO DAILY #30 tab 06/19/18 Prednisone [Deltasone] 40 mg PO DAILY #6 tablet 09/09/18 Review of Systems - Psychiatric Psychiatric: Abnormal Sleep Pattern, Anhedonia, Anxiety, Behavioral Changes, Change in Appetite, Depression, Difficulty Concentrating, Mood Swings. absent: Hallucinations, Homicidal Ideation, Paranoia, Suicidal Ideation Mental Status Examination - Personal Presentation Personal Presentation: Looks stated age (over weight, unkempt, sedated) - Affect Affect: Constricted - Motor Activity Motor Activity: Calm - Reliability in Providing Information Reliability in Providing Information: Good - Speech Speech: Organized - Mood Mood: Depressed, Anxious - Formal Thought Process Formal Thought Process: No Impairment - Cognitive Functions Orientation: Person, Place, Situation, Time Sensorium: Alert Attention/Concentration: Easily distracted Abstract Thinking: Lane Estimate of Intelligence: Average Judgement: Imparied, as evidence by: Poor judgement, Intact, as evidence by: Insight regarding need for hospitalization Memory: Recent intact, as evidence by: Ability to recall events of the day, Remote intact, as evidenced by: Abilit to recall sig. life events - Risk Risk: Withdrawal, Diminished functioning - Strength & Assets Inventory Strength & Assets Inventory: Cooperative - Limitations Limitations: Living alone, Other DSM 5 DX - DSM 5 DSM 5 Diagnosis: Bipolar disorder, depressed, severe Borderline personality d/o PTSD CIRO Alcohol use d/o - severe Tobacco use d/o - severe - Recommended/Plan of Treatment Treatment Recommendations and Plan of Treatment: Bipolar disorder current episode mixed severe without psychotic features CBT Psychoeducation Supportive therapy, group therapy, individual therapy Lexapro for depression Seroquel 200 mg by mouth daily at bedtime Alcohol use disorder severe CBT Psychoeducation Supportive therapy, individual therapy Use [place] for abstinence Librium when necessary Naltrexione for cravings Asthma Continue prescribed medications Monitor signs and symptoms 35 min Projected ELOS: 7 days Prognosis: good with DTP - Smoking Cessation Smoking Cessation Initiated: Yes
--- NOTE | 2018-12-23 11:54 | PCM.BM ---
<Soraya Aguero - Last Filed: 12/23/18 11:50> Treatment Plan Problems - Problems identified on initial assessmt Depression Date Initiated: 12/23/18 Time Initiated: 11:51 Assessment reference: NA Status: Active Self Care Deficit Date Initiated: 12/23/18 Time Initiated: 11:52 Assessment reference: NA Status: Active Feelings, Worthlessness Date Initiated: 12/23/18 Time Initiated: 11:52 Assessment reference: NA Status: Active Treatment assets and liabiliti Patient Assests: adapts well, cooperative, resourceful, self-reliant, ADL independent, negotiates basic needs, cognitively intact Patient Liabilities: live alone (Lives with mom), financial problems, substance abuse (Hx of Benzo, Bal 235), medical problems - Milieu Protocol Maintain good personal hygiene: daily Encourage regular showers, daily Remind patient to perform daily oral care, daily Assist patient to perform ADL's (Self care), other Assist patient to perform ADL's Conduct patient checks and document Observation sheet: Q15 minutes Maintain personal safety: every shift Educate patient to report safety concerns to staff, every shift Monitor environment for contraband/sharps Medication safety: Monitor for expected outcome, potential side effects: every shift, Assess barriers to learning: every shift, Assess readiness for medication education: every shift <Delaney Perez - Last Filed: 12/24/18 14:41> Family Contact Family involvement: Patient does not wish Family/SO involvement Family contact: Patient declines to allow family contact at present - Goals for Treatment Patient goals for treatment: "I want to go to a partial care program." Discharge/Continuing Care - Education Needs Education Needs: Patient Medication, Patient Diagnosis/Disease Process, Patient Coping Skills, Patient Placement options, Patient Community resources - Discharge Discharge Criteria: Free of Suicidal thoughts, Normal sleep pattern, Ability to care for self, No longer exhibiting s/s of withdrawal, Reduction of target symptoms Discharge to:: Home - Treatment Team Participation Discussed with Family/SO: No Was Patient/Family/SO present at Treatment Team Meeting: Yes
[2018-12-23] MEDS: Albuterol-Ipratrop 3 mg / 0.5 (3 ml) UD INH SCH ×3 (15:00→22:50)
[2018-12-23] MEDS: Aritificial Tears (15ml) OU PRN (17:43)
[2018-12-23] MEDS: Albuterol HFA 90 mcg/actuation (8 g) IH PRN (18:28)
[2018-12-23] MEDS: guaiFENesin 100 mg/5 ml Syrup UD PO PRN (20:58)
[2018-12-23] MEDS ORDERED: Vitamins A & D Oint UD Foilpak TOP PRN (22:11)
[2018-12-24] MEDS: Albuterol HFA 90 mcg/actuation (8 g) IH PRN ×3 (01:35→15:31)
[2018-12-24] MEDS: Albuterol-Ipratrop 3 mg / 0.5 (3 ml) UD INH SCH ×4 (01:36→20:38)
--- NOTE | 2018-12-24 09:41 | PCM.PYCHPN ---
Psychiatric Progress Note - Psychiatric Progress Note Patient seen today, length of contact: 17 min Patient Chief Complaint: "I am better" Problems Identified/Issues Discussed: The pt is seen, chart reviewed, case discussed with staff. The pt is compliant with medications and reports no side-effects. Symptoms are improving but needs more time to stabilize. Pt attends groups and activities. Support given, psycho-education provided. After care discussed. Wants to leave but not ready - agreed Naltrexone to start for cravings Medication Change: Yes (Naltrexone, increase Lexapro) Medical Record Reviewed: Yes Mental Status Examination - Cognitive Function Orientation: Person, Place, Situation, Time Memory: Intact Attention: Poor Concentration: Poor Association: WNL Fund of Knowledge: WNL - Mood Mood: Depressed, Anxious - Affect Affect: Constricted - Speech Speech: Appropriate - Formal Thought Process Formal Thought Process: No Impairment - Suicidal Ideation Suicidal Ideation: No - Homicidal Ideation Homicidal Ideation: No Goal/Treatment Plan - Goal/Treatment Plan Need for Continued Stay: Severe depression anxiety, Discharge may exacerbated symptoms, Severe functional impairment Progress Toward Problem(s) and Goals/Treatment Plan: Bipolar disorder current episode mixed severe without psychotic features CBT Psychoeducation Supportive therapy, group therapy, individual therapy Lexapro for depression Seroquel 200 mg by mouth daily at bedtime Alcohol use disorder severe CBT Psychoeducation Supportive therapy, individual therapy Use [place] for abstinence Librium when necessary Naltrexione for cravings Asthma Continue prescribed medications Monitor signs and symptoms
--- NOTE | 2018-12-24 13:55 | CARD ---
APPROVED REPORT Date of service: 12/23/2018 EKG Measurement Heart [id number] <Conclusion> Sinus tachycardia Otherwise normal ECG
[2018-12-24] MEDS: Pantoprazole 40 mg EC Tab PO SCH (17:56)
[2018-12-25] MEDS: Albuterol-Ipratrop 3 mg / 0.5 (3 ml) UD INH SCH ×4 (02:30→20:21)
[2018-12-25] MEDS: Aritificial Tears (15ml) OU PRN (09:52)
[2018-12-25] MEDS: Albuterol HFA 90 mcg/actuation (8 g) IH PRN (09:53)
[2018-12-25] MEDS: guaiFENesin 100 mg/5 ml Syrup UD PO PRN (09:53)
[2018-12-25] MEDS: Pantoprazole 40 mg EC Tab PO SCH (10:32)
--- NOTE | 2018-12-25 11:54 | PCM.PYCHPN ---
Psychiatric Progress Note - Psychiatric Progress Note Patient seen today, length of contact: 16 min Patient Chief Complaint: "I can leave" Problems Identified/Issues Discussed: The pt is seen, chart reviewed, case discussed with staff. Support and psychoeducation given, CBT and PR used briefly No new symptoms reported, improving slowly and needs more time No SEs from medications, risks discussed. After care discussed - [facility] She put in a 48 hr and wants to leave. Risks discussed Likely dc tomorrow Medication Change: Yes (Naltrexone, increase Lexapro) Medical Record Reviewed: Yes Mental Status Examination - Cognitive Function Orientation: Person, Place, Situation, Time Memory: Intact Attention: Poor Concentration: Poor Association: WNL Fund of Knowledge: WNL - Mood Mood: Depressed, Anxious - Affect Affect: Constricted - Speech Speech: Appropriate - Formal Thought Process Formal Thought Process: No Impairment - Suicidal Ideation Suicidal Ideation: No - Homicidal Ideation Homicidal Ideation: No Goal/Treatment Plan - Goal/Treatment Plan Need for Continued Stay: Severe depression anxiety, Discharge may exacerbated symptoms, Severe functional impairment Progress Toward Problem(s) and Goals/Treatment Plan: Bipolar disorder current episode mixed severe without psychotic features CBT Psychoeducation Supportive therapy, group therapy, individual therapy Lexapro for depression Seroquel 200 mg by mouth daily at bedtime Alcohol use disorder severe CBT Psychoeducation Supportive therapy, individual therapy Use [place] for abstinence Librium when necessary Naltrexione for cravings Asthma Continue prescribed medications Monitor signs and symptoms
[2018-12-26] MEDS: Albuterol-Ipratrop 3 mg / 0.5 (3 ml) UD INH SCH (01:31)
[2018-12-26] MEDS: Albuterol HFA 90 mcg/actuation (8 g) IH PRN (04:42)
[2018-12-26 06:40] VITALS: BP 119/77; PULSE 96; RESP 20; TEMP 97.9
--- NOTE | 2018-12-26 09:46 | PCM.PYCHDC ---
Mental Status Examination - Mental Status Examination Orientation: Person Discharge Summary - Discharge Note Consultations:: List each consultation separately and include: 1. Reason for request. 2. Findings. 3. Follow-up Summary of Hospital Course include:: 1. Description of specific treatment plan utilized for patients during their course of treatmen. 2. Summarize the time- course for resolution of acute symptoms and/or regressed behaviors. 3. Describe issues identified and worked on during hospitalization. 4. Describe medication utilized. 5. Describe medical problems identified and treated. 6. Reassessment of suicide risk Summary of Hospital Course: On admission: Pt is a 43 yo female, and was admitted to the hospital for depression and suicidal ideation, after an impulsive attempt with Ambien OD. Pt is currently single, lives alone, has 7 children between the ages of 22 and 10 who live with their father, and collects SSI. Two of her children are incarcerated. Pt claims she had been drinking and had a fight with her mother over it and impulsively attempted suicide. No notes written. Her brother found her and called 911. She did not drink the whole med bottle. She is now happy to be alive. No medical/ICU tx needed. She had had similar attempts after fights with boy friend or children, in the past. She admits to having been depressed again for months. She admits to missing her outpt appointment and not following up. Associated symptoms include decreased energy, decreased appetite, poor sleep, anhedonia, anxiety and racing thoughts. Pt denies visual hallucinations, auditory hallucinations, paranoia, flight of ideas, and homicidal ideation. Pt admits to a long history of alcohol use. Drinks five 24 oz. cans of beer on the weekends. States she relapsed few weeks ago. Denies tremors, abdominal pain, nausea, vomiting, diaphoresis, chills, agitation. Denies history of seizures. Reports history of one prior detox and one rehab. Admits to smoking a half a pack of cigarettes approximately 2 days per week (only when she drinks) for 20 years. Denies all other drug use. Psych Hx: Bipolar disorder, alcohol use disorder History of multiple inpatient psych admissions, last admission was at [facility] 4 months ago for depression. States she did not follow up with [facility] following discharge because she moved in with her boyfriend in [place] and then missed an intake. Pt has a history of prior suicide attempt by overdosing and hanging. Family Psych Hx: mother and sister- bipolar disorder; sister-alcohol use disorder; 2 bothers- opioid use disorder PMHx: HTN, Asthma Hospital course: The pt was admitted and started on treatment with psychotherapy, support, psychoeducation and medications. All the risks and benefits of medications are discussed and the patient understood and agreed. MO and CBT used. The pt attended groups and activities, as well as milieu therapy. The pt improved with the treatments provided. After care discussed with the patient. She put in a 48 hr note and left today w an appt at [facility]. - Final Diagnosis (DSM 5) Condition upon Discharge: STABLE Disposition: HOME/ ROUTINE Follow-up Treatment Plan: Continue below medications after discharge. Follow after care plan as discussed. Use relapse prevention skills Return to ER or call 911 if suicidal, homicidal or symptoms relapse. Stay away from stress, alcohol and drugs. See primary doctor regularly and get labs. Prescriptions/Medication Reconciliation: Albuterol Sulfate [Ventolin Hfa] 1 puff IH BID #30 hfa.aer.ad amLODIPine [Norvasc] 5 mg PO DAILY #30 tab Escitalopram [Lexapro] 20 mg PO DAILY #30 tab hydrOXYzine HCl [Atarax] 50 mg PO BID PRN #30 tab PRN Reason: Anxiety Naltrexone [Revia] 50 mg PO DAILY #30 tab Pantoprazole [Protonix EC Tab] 40 mg PO DAILY #30 ect QUEtiapine [SEROquel] 200 mg PO HS #30 tab Rosuvastatin Calcium [Crestor] 5 mg PO HS #30 tab traZODone [Desyrel] 100 mg PO HS #30 tab
[2018-12-26] MEDS ORDERED: Influenza Vaccine 60 mcg/0.5 mL SYR (4YR UP) IM ONE (10:00)
[2018-12-26] MEDS ORDERED: Pneumococcal 23-Valent Vaccine IM ONE (10:00)
[2018-12-26] MEDS: Pantoprazole 40 mg EC Tab PO SCH (10:02)
== END 2018-12-26 10:45 | disposition home or self-care (01) | DRG 430 ==
LOC: C.ER 00:57 → C.5E 09:27
PROVIDERS: ADMIT Psychiatry & Neurology Psychiatry; ATTEND Psychiatry & Neurology Psychiatry
PROC: GZ3ZZZZ Medication Management (ICD-10-PCS; principal; 2018-12-23)
PROC: GZHZZZZ Group Psychotherapy (ICD-10-PCS; 2018-12-23)
PROC: GZ56ZZZ Individual Psychotherapy, Supportive (ICD-10-PCS; 2018-12-23)
DX: F31.63 Bipolar disorder, current episode mixed, severe, without psychotic features (principal); F10.129 Alcohol abuse with intoxication, unspecified; T42.6X2A Poisoning by other antiepileptic and sedative-hypnotic drugs, intentional self-harm, initial encounter; F43.10 Post-traumatic stress disorder, unspecified; F41.1 Generalized anxiety disorder; F20.9 Schizophrenia, unspecified; F60.3 Borderline personality disorder; Y90.7 Blood alcohol level of 200-239 mg/100 ml; Z91.5 Personal history of self-harm; F17.210 Nicotine dependence, cigarettes, uncomplicated; E78.00 Pure hypercholesterolemia, unspecified; I10 Essential (primary) hypertension; J44.9 Chronic obstructive pulmonary disease, unspecified; Y92.9 Unspecified place or not applicable; Z79.899 Other long term (current) drug therapy

== ENCOUNTER 2019-03-27 20:02 | Emergency (ER) | payer MEDICAID, OTHER | END 2019-03-27 21:51 | disposition left against medical advice (07) | LOC: C.ER 20:02 | CPT/HCPCS: 71045; 73030; 80053; 80320; 80324; 80329; 80345; 80346; 80349; 80353; 80358; 80361; 81001; 83735; 83992; 84100; 84703; 85025; 93005; 99285; J7030 ==